=== PATIENT | male | born 1975 | race Caucasian/White ===

== ENCOUNTER 2020-10-19 17:28 | Emergency (ER) | payer OTHER, SELFPAY ==
--- NOTE | 2020-10-19 | ECG_ITS ---
Test Reason : CHEST PAIN Blood Pressure : / mmHG Vent. Rate : 072 BPM Atrial Rate : 072 BPM P-R Int : 136 ms QRS Dur : 090 ms QT Int : 420 ms P-R-T Axes : 061 039 046 degrees QTc Int : 459 ms Normal sinus rhythm Normal ECG No previous ECGs available Referred By: Generic ED Physician Electronically Signed By:DAVE LU
--- NOTE | ~2020-10-19 | CT_ITS ---
EXAMINATION: CT ABDOMEN AND PELVIS WITH CONTRAST CLINICAL INFORMATION: Pain. Assess for pancreatitis. COMPARISON: None TECHNIQUE: Multidetector volumetric images were obtained from the superior aspect of the liver through the pubic symphysis following administration 85 mL of Omnipaque 350 intravenous contrast. Sagittal and coronal reformatted images were obtained on the technologist's workstation. Oral contrast: No This CT examination was performed using dose optimization techniques as appropriate, variously including the following: *Automated exposure control *Adjustment of mA and/or kV according to patient size (this includes techniques or standardized protocols for targeted exams where dose is matched to indication/reason for exam; i.e. extremities or head) *Use of iterative reconstruction technique DLP: 986. mGy-cm FINDINGS: LUNG BASES: The visualized lung bases are unremarkable. LIVER, GALLBLADDER, AND BILIARY TREE: Liver attenuation is somewhat homogeneously hyperdense likely due to phase of enhancement and scanning. The liver is normal in size, shape, and attenuation. No focal hepatic lesion or biliary ductal dilatation is present. The gallbladder is unremarkable with no evidence of radiopaque gallstones, gallbladder wall thickening, or obvious pericholecystic inflammatory changes. PANCREAS: Unremarkable. SPLEEN: Unremarkable. ADRENAL GLANDS: Unremarkable. KIDNEYS AND URETERS: The kidneys are normal in size, shape, and attenuation. No hydronephrosis, hydroureter, or calculi seen. No perinephric stranding. BLADDER: Unremarkable. GASTROINTESTINAL TRACT: The small and large bowel are unremarkable. The appendix is unremarkable. ABDOMINAL WALL: There are prominent left greater than right fat-containing inguinal hernias. LYMPH NODES: Normal. VASCULAR: Unremarkable. PELVIC VISCERA: Unremarkable. OSSEOUS STRUCTURES: Hemangioma and degenerative disc disease changes noted within the lumbar spine. CT/CT abdomen pelvis w con IMPRESSION: No imaging findings of acute pancreatitis. Fat-containing prominent incarcerated appearing inguinal hernias.
[2020-10-19 17:33] VITALS: BP 161/99; PULSE 79; RESP 24; TEMP 36.2; O2SAT 100; BMI 30.7
[2020-10-19 18:00] VITALS: BP 147/98; PULSE 65; RESP 16; TEMP 36.7; O2SAT 100
--- NOTE | 2020-10-19 18:09 | ED.ABDPAIN ---
HPI - Abdominal Pain General Chief Complaint: Abdominal Pain Stated Complaint: abd pain Time Seen by Provider: 10/19/20 17:31 Source: patient Mode of arrival: ambulatory Limitations: no limitations History of Present Illness HPI narrative: Patient no significant abdominal complaints in the past had pizza around noon time within 2 hours of eating pizza noticed severe pain in epigastric area radiating to the back patient never had similar pain in the past no history of acid problems no history of gallstones patient did feel nauseated no vomiting or diarrhea no chest pain no shortness of breath no fever or chills Related Data Previous Rx's Medication Instructions Recorded methocarbamol 750 mg tablet 750 mg PO Q8H PRN 7 Days #21 tab 02/06/20 dicyclomine 20 mg tablet 20 mg PO TID #30 tab 10/19/20 pantoprazole 40 mg tablet,delayed 40 mg PO DAILY #30 tab 10/19/20 release (Protonix) sucralfate 1 gram tablet 1 g PO TID #90 tab 10/19/20 Allergies Allergy/AdvReac Type Severity Reaction Status Date / Time tetracycline Allergy Unknown Unverified 06/27/19 00:00 No Known Allergies Allergy Unverified 11/03/19 15:06 Review of Systems Review of Systems Yes all other systems are reviewed and are negative Physical Exam Vital Signs: Vital Signs: Last Vital Signs Temp 98.1 F 10/19/20 21:54 Pulse 67 10/19/20 21:54 Resp 16 10/19/20 21:54 BP 121/73 10/19/20 21:54 Pulse Ox 96 10/19/20 21:54 Body Mass Index 30.7 Appearance: Alert. Oriented X3. In Moderate distress Eyes: No pallor or icterus ENT: Pharynx normal. Oral Mucosa moist Neck: Normal inspection. Neck supple. CVS: Normal heart rate and rhythm. Pulses normal. Respiratory: No respiratory distress. Equal air entry bilateral, no wheezing/rales/rhonchi Abdomen: Soft , tender epigastric area and right upper quadrant no rebound tenderness or guarding Bowel sounds are present, no mass palpable, no CVA tenderness Skin: Skin warm and dry. Normal skin color. Normal skin turgor. Extremities: No lower extremity edema. No calf tenderness Neuro: Oriented X 3. MDM - Abdominal Pain MDM Narrative Medical decision making narrative: Patient with sudden onset epigastric pain etiology of that is not clear CT scan negative labs stable patient did have old surgery and inguinal hernia there is no tenderness and no vinyl hernia area. Will discharge patient home on Protonix and sucralfate advised to follow with underwriter solicitation director Lab Data Attestation: I reviewed the patient's lab results. Result diagrams: 10/19/20 18:17 10/19/20 18:17 Labs: Lab Results 10/19/20 10/19/20 10/19/20 Range/Units 18:17 18:17 18:18 WBC 6.0 (4.8-10.8) X10*3/uL RBC 4.43 L (4.60-5.80) X10*6/uL Hgb 13.4 L (14.0-18.0) g/dl Hct 39.4 L (42-52) % MCV 88.9 (80-98) fL MCH 30.2 (27.0-33.0) pg MCHC 34.0 (31.0-36.0) g/dl RDW 13.3 (11.0-16.0) % Plt Count 104 L (160-400) X10*3/uL MPV 12.5 H (9.4-12.4) fL Immature Gran % (Auto) 0.2 (0.0-0.4) % Neut % (Auto) 53.8 (45-73) % Lymph % (Auto) 38.5 (20-40) % [place] % (Auto) 6.0 (2-11) % Eos % (Auto) 1.3 (0-4) % Baso % (Auto) 0.2 (0-2) % Lymph # (Auto) 2.3 (1.2-4.9) X10*3/uL [place] # (Auto) 0.4 (0.1-1.2) X10*3/uL Eos # (Auto) 0.1 (0.0-0.4) X10*3/uL Baso # (Auto) 0.0 (0.0-0.2) X10*3/uL Abs Immat Gran (auto) 0.01 (0.00-0.03) X10*3/uL Absolute Neuts (auto) 3.2 (2.0-8.3) X10*3/uL Absolute Nucleated RBC 0.000 (0.0-0.012) X10*3/uL Nucleated RBC % (auto) 0.0 (0.0-0.2) /100WBC Sodium 138 (135-145) mmol/L Potassium 3.6 (3.3-5.1) mmol/L Chloride 105 (96-108) mmol/L Carbon Dioxide 25 (22-29) mmol/L Anion Gap 12 (12-20) BUN 14 (9-16) mg/dL Creatinine 0.80 (0.5-1.4) mg/dL Estim Creat Clear Calc 178.7 Estimated GFR > 60 Random Glucose 112 (60-115) mg/dL Lactic Acid 1.5 (0.5-2.0) mmol/L Calcium 9.4 (8.4-10.2) mg/dL Total Bilirubin 1.4 H (0.0-1.0) mg/dL Direct Bilirubin 0.4 (0.0-0.5) mg/dL AST 26 (5-37) U/L ALT 21 (0-40) U/L Alkaline Phosphatase 74 (39-117) U/L Total Protein 7.0 (6.5-8.0) g/dL Albumin 4.4 (3.5-5.0) g/dL Lipase 28 (8-78) U/L Discharge Plan Discharge Clinical Impression: Acute gastritis Patient Disposition: Home, Self-Care Instructions: Gastritis (ED) Additional Instructions: Drink plenty of fluids avoid spicy and fried food Medicine For gastritis follow with PCP/underwriter solicitation director if not better Prescriptions: New pantoprazole [Protonix] 40 mg tablet,delayed release (DR/EC) 40 mg PO DAILY Qty: 30 RF: 0 sucralfate 1 gram tablet 1 g PO TID Qty: 90 RF: 0 dicyclomine 20 mg tablet 20 mg PO TID Qty: 30 RF: 0 No Action methocarbamol 750 mg tablet 750 mg PO Q8H PRN (Reason: spasms) 7 Days Qty: 21 RF: 0 Referrals: Divya Jones MD [Physician] - 1 week Interventions: ED Discharge Assessment Last Done: 10/19/20 22:20 Discharge Date/Time: 10/19/20 22:21 [facility] Past Medical History Medical History Arthritis Social History Social History Advance Directives: No Advance Directives Information Provided: Yes
[2020-10-19 18:25] LABS: MANUAL DIFF FLAG NO
[2020-10-19] MEDS: Morphine Sulfate 4 MG/ML CARTRIDGE IVPUSH ×2 (18:25→18:46)
[2020-10-19] MEDS: ondansetron HCL 4 MG/2 ML VIAL IVPUSH (18:25)
[2020-10-19] MEDS: 0.9 % Sodium Chloride 1,000 ML 999 ML IVCONT (18:26)
--- NOTE | 2020-10-19 18:33 | PC.NURSE ---
Pt states he began having epigastric pain which started this morning while at work, when he got home this afternoon he was on the floor in pain. He denies any other symptoms. No c/o sob/headache/dizziness/nausea. Iv line established, labs drawn, fluids hung, meds given as documented, vss. Pt resting quietly, no apparent distress.
[2020-10-19 18:39] LABS: Basophils Percent Auto 0.2 % (0-2); Eosinophils Absolute Auto 0.1 X10*3/uL (0.0-0.4); Eosinophils Percent Auto 1.3 % (0-4); Hematocrit 39.4 % (42-52); Hemoglobin 13.4 g/dl (14.0-18.0); Imm Gran Abs Auto 0.01 X10*3/uL (0.00-0.03); Imm Gran Pct Auto 0.2 % (0.0-0.4); Lymphocytes Absolute Auto 2.3 X10*3/uL (1.2-4.9); Lymphocytes Percent Auto 38.5 % (20-40); Mean Corpuscular Hemoglobin 30.2 pg (27.0-33.0); Mean Corpuscular Volume 88.9 fL (80-98); Mean Platelet Volume 12.5 fL (9.4-12.4); Monocytes Absolute Auto 0.4 X10*3/uL (0.1-1.2); Neutrophils Absolute Auto 3.2 X10*3/uL (2.0-8.3); Neutrophils Percent Auto 53.8 % (45-73); Platelet Count 104 X10*3/uL (160-400); Red Blood Count 4.43 X10*6/uL (4.60-5.80); Red Cell Distribution Width 13.3 % (11.0-16.0)
[2020-10-19 18:47] LABS: Lactic Acid 1.5 mmol/L (0.5-2.0)
[2020-10-19 18:55] LABS: Alanine Aminotransferase 21 U/L (0-40); Albumin Level 4.4 g/dL (3.5-5.0); Alkaline Phosphatase 74 U/L (39-117); Anion Gap 12 (12-20); Aspartate Amino Transferase 26 U/L (5-37); Bilirubin Direct 0.4 mg/dL (0.0-0.5); Bilirubin Total 1.4 mg/dL (0.0-1.0); Blood Urea Nitrogen 14 mg/dL (9-16); Calcium 9.4 mg/dL (8.4-10.2); Carbon Dioxide 25 mmol/L (22-29); Chloride 105 mmol/L (96-108); Creatinine Clr Calc Pharmacy 178.7; Estimated Glomerular Filt Rate > 60; Glucose Random 112 mg/dL (60-115); Lipase 28 U/L (8-78); Potassium 3.6 mmol/L (3.3-5.1); Sodium 138 mmol/L (135-145)
[2020-10-19] MEDS: iohexoL 350 MG/ML 100 ML INFUS..BTL IV (19:30)
[2020-10-19 19:59] VITALS: BP 118/78; PULSE 53; RESP 16; TEMP 36.7; O2SAT 98
[2020-10-19] MEDS: Magnesium Hydrox/Alum Hydrox 30 ML ORAL.SUSP PO (20:05)
[2020-10-19] MEDS: Famotidine/PF 20 MG/2 ML VIAL IVPUSH (20:05)
[2020-10-19] MEDS: Lidocaine HCl Viscous 2 % 15 ML SOLUTION MUCOUS MEM (21:19)
[2020-10-19 21:54] VITALS: BP 121/73; PULSE 67; RESP 16; TEMP 36.7; O2SAT 96
== END 2020-10-19 22:21 | disposition home or self-care (01) ==
PROVIDERS: Emergency Provider Internal Medicine; PCP Physician Assistant
DX: K29.00 Acute gastritis without bleeding (principal)
CPT/HCPCS: 36415; 74177; 80048; 80076; 83605; 83690; 85025; 93005; 96361; 96374; 96375; 96376; 99284; J2270; J2405; Q9967

== ENCOUNTER 2023-01-02 08:58 | Outpatient (AMB) | payer BC, SELFPAY ==
--- NOTE | 2023-01-02 09:02 | A.OFFPC_ITS ---
Vital Signs 01/02/23 09:05 Height 6 ft 8 in Weight 284 lb 4 oz BMI 31.2 BP 90/66 Blood Pressure Location Lt brachial Position Sitting Pulse 83 Pulse Source Pulse Oximeter Pulse Oximetry (%) 96 Oxygen Delivery Method Room Air Intake Visit Reasons: Discuss MRI request Intake Note: Patient is here to follow up on MRI results. 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 Accountant Required: No Transmission Specialist: Not Required per policy Accompanied by: Self / Same As Patient Allergies tetracycline Allergy (Unknown, Verified 01/02/23 09:03) Unknown Tobacco use date assessed: 01/02/23 Dental Screening Dental Screen Date: 01/02/23 Did you have a dental visit in the last 12 months?: No Did you have a dental problem in the last 6 months where you did not have access to dental care?: No Was dental information given to patient?: No HPI HPI Comments History of Present Illness Details 47-year-old male past medical history si gnificant for chronic knee instability and arthritis. Patient of Brendan Villarreal PA-C last seen in October 2021. Patient was seen in the walk-in clinic for scrotal fullness, referral was placed to urology at that time and patient has an upcoming appointment for this in March. Patient presents today for chronic bilateral knee pain. Patient reports chronic bilateral knee pain x 10 years, hx left knee arthoscopy, states has bone on bone and bone spurs in 2013 at [facility]. Patient states during COVID slipped on children's book. Patient states takes ibuprofen with partial improvement pain. Patient reports difficulty going up and down stairs. Patient reports bilateral pain with extension over kneecap. Bilateral knee crepitus noted on exam. 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 1. Little interest or pleasure in doing things: not at all 2. Feeling down, depressed, or hopeless: not at all 3. Trouble falling or staying asleep, or sleeping too much: not at all 4. Feeling tired or having little energy: not at all 5. Poor appetite or overeating: not at all 6. Feeling bad about yourself - or that you are a failure or have let yourself or your family down: not at all 7. Trouble concentrating on things, such as reading the newspaper or watching television: not at all 8. Moving or speaking so slowly that other people could have noticed. Or the opposite - being so fidgety or restless that you have been moving around a lot more than usual: not at all 9. Thoughts that you would be better off or of hurting yourself in some way: not at all Total score: 0 Depression Screening Interpretation: Negative Depression Screening Done: Yes Source: Developed by Drs. Savage Ramsey, Salma Morin, Justin Torres and colleagues, with an educational mariano from [employer]. Thrive Questionnaire Date Thrive assessed: 01/02/23 I am a: Patient What is your living situation today?: I have a steady place to live Within the past 12 months, did the food you bought not last and you didn't have the money to get more?: Never true Within the past 12 months, did you worry whether your food would run out before you got money to buy more?: Never true Do you have trouble paying for medicines?: No Do you have trouble getting transportation to medical appointments?: No Do you have trouble paying your heating and electricity bill?: No Do you have trouble taking care of your child, family member or friend?: No Do you have trouble with day-to-day activities such as bathing, preparing meals, shopping, managing finances, etc.?: No Are you currently unemployed and looking for a job?: No Are you interested in more education?: No Currently or been in a relationship where the following occur: no concerns reported AUDIT C Alcohol Use Questionnaire (AUDIT-C) 1. How often do you have a drink containing alcohol?: Never Total Score: 0 JOAQUIN-7 AMB Questionnaire JOAQUIN-7 Date JOAQUIN - 7 assessed: 01/02/23 Feeling nervous, anxious, or on edge: 0 = Not at all Not being able to stop or control worryin = Not at all Worrying too much about different things: 0 = Not at all Trouble relaxin = Not at all Being so restless that it is hard to sit still: 0 = Not at all Becoming easily annoyed or irritable: 0 = Not at all Feeling afraid as if something awful might happen: 0 = Not at all Total JOAQUIN-7 score (0-4 normal; 5-9 mild; 10-14 moderate; 15-21 severe): 0 Source: Developed by Drs. Savage Ramsey, Salma Morin, Justin Torres and colleagues, with an educational mariano from [employer]. Review of Systems Const Denies chills, Denies fatigue, Denies fever(s) and Denies poor appetite Eyes Denies no additional complaints ENT Reports Normal hearing present Card Denies chest pain, Denies syncope, Denies rapid heart rate and Denies dyspnea Resp Denies cough and Denies dyspnea GI Denies change in stool character, Denies constipation, Denies diarrhea, Denies nausea and Denies vomiting Denies dysuria, Denies urinary frequency and Denies urinary urgency Musc Reports arthralgias (bilateral knee pain ) Neuro Reports Normal hearing present, Denies confusion and Denies syncope Psych Denies confusion Endo Denies fatigue Physical exam (Primary Care) Vital Signs: Last Vital Signs Pulse 83 01/02/23 09:05 BP 90/66 01/02/23 09:05 Pulse Ox 96 01/02/23 09:05 Oxygen Delivery Method Room Air 01/02/23 09:05 BMI result Body Mass Index 31.2 Tobacco/Smoking Status: Tobacco use Status Tobacco use date assessed 01/02/23 01/02/23 09:05 Patient Tobacco Use Status Never used Tobacco 01/02/23 09:11 e-Cigarette/Vaping Use Never Used 01/02/23 09:11 PHQ-9: PHQ-9 Score PHQ-9: Total score 0 01/02/23 09:20 Depression Screening Interpretation: Negative Thrive Assessment: Date of Thrive Assessment Date Thrive assessed 01/02/23 01/02/23 09:05 Currently or been in a relationship where the following occur: no concerns reported Const General: No confusion Orientation/consciousness: No confusion HENMT Head: Yes normocephalic and Yes atraumatic Eyes Conjunctivae: conjunctivae normal Chest Chest palpation & inspection: normal inspection of the chest Resp Effort & Inspection: normal respiratory effort Auscultation: clear to auscultation bilaterally, no crackles, no rhonchi and no wheezes Cardio Rate: regular rate Rhythm: regular rhythm Heart sounds: S1 normal heart sound present and S2 normal heart sound present GI Inspection: Yes normal to inspection Neuro General: No confusion Cranial nerves: Yes Normal hearing present Extrem General: No edema Right lower extremity: normal to inspection, normal capillary refill and knee Details: tenderness Location: of the patella and crepitus Location: at the kneww and at the patella; no swelling Left lower extremity: normal to inspection, normal capillary refill and knee Details: tenderness Location: of the patella and crepitus Location: at the knee; no swelling Assessment and Plan Assessment & Plan (1) Chronic knee instability: Code(s): M23.50 - Chronic instability of knee, unspecified knee Plan: Bilateral knee x-rays recommended however patient declines at this time states he had knee x-rays completed in the past, would like MRI of knees. Patient states has not completed physical therapy for bilateral knee pain. Would like to speak to orthopedic surgeon for Referral entered to orthopedic surgery for further evaluation of bilateral chronic knee pain and ordering of necessary imaging. Can continue to take [id number] ibuprofen as needed for pain. Offered prescription for this however patient declines. Please take medication food to prevent GI upset. (2) Bilateral knee pain: Code(s): M25.561 - Pain in right knee; M25.562 - Pain in left knee Plan Follow-up in 3 months for complete physical exam. Orders: Orders Complete Blood Count Auto Diff Today Z13.0 - Encounter for screening for diseases of the blood and blood-forming organs and certain disorders involving the immune mechanism TSH reflex Free T4 Today Z13.29 - Encounter for screening for other suspected endocrine disorder Comprehensive [place]. Panel Fast Today Z13.1 - Encounter for screening for diabetes mellitus Lipid Panel Today Z13.220 - Encounter for screening for lipoid disorders Referrals Orthopedics Referral M23.50 - Chronic instability of knee, unspecified knee, M25.561 - Pain in right knee, M25.562 - Pain in left knee Coding Level of Care Code Est Pt Level 3 (85482) Diagnoses Chronic knee instability M23.50 Bilateral knee pain M25.561; M25.562
[2023-01-02 09:05] VITALS: BP 90/66; PULSE 83; O2SAT 96; BMI 31.2
== END 2023-01-02 09:29 | disposition home or self-care (01) ==
PROVIDERS: PCP Physician Assistant; Visit Provider Nurse Practitioner Family
DX: M23.50 Chronic instability of knee, unspecified knee (principal); M25.561 Pain in right knee; M25.562 Pain in left knee
CPT/HCPCS: 99213

== ENCOUNTER 2023-01-21 12:33 | Outpatient (REF) | payer BC, SELFPAY | END 2023-01-21 12:34 | disposition home or self-care (01) | LOC: HO.HOSX 12:33 | PROVIDERS: Visit Provider Orthopaedic Surgery | DX: Z13.89 Encounter for screening for other disorder (principal) ==

== ENCOUNTER 2023-01-29 14:06 | Outpatient (REF) | payer BC, SELFPAY ==
--- NOTE | ~2023-01-29 | XR_ITS ---
EXAMINATION: XR KNEE, BILATERAL CLINICAL INFORMATION: Bilateral knee pain COMPARISON: None. TECHNIQUE: 3 views of each knee FINDINGS: Marked medial compartment narrowing of both knees with lateral subluxation of the tibia. Marginal osteophytes of all 3 compartments. Degenerative cyst/intraosseous ganglion deep to the tibial spines bilaterally. There is a moderately sized right knee joint effusion. No fracture. XR/XR knee LT 3V IMPRESSION: Tricompartmental osteoarthritis, severe in the medial compartment, of both knees with lateral subluxation of the tibia. Moderate right knee joint effusion.
--- NOTE | ~2023-01-29 | XR_ITS ---
EXAMINATION: XR KNEE, BILATERAL CLINICAL INFORMATION: Bilateral knee pain COMPARISON: None. TECHNIQUE: 3 views of each knee FINDINGS: Marked medial compartment narrowing of both knees with lateral subluxation of the tibia. Marginal osteophytes of all 3 compartments. Degenerative cyst/intraosseous ganglion deep to the tibial spines bilaterally. There is a moderately sized right knee joint effusion. No fracture. XR/XR knee RT 3V IMPRESSION: Tricompartmental osteoarthritis, severe in the medial compartment, of both knees with lateral subluxation of the tibia. Moderate right knee joint effusion.
== END 2023-01-29 14:07 | disposition home or self-care (01) ==
LOC: HO.HOSX 14:06
PROVIDERS: PCP Physician Assistant; Visit Provider Orthopaedic Surgery
DX: M17.0 Bilateral primary osteoarthritis of knee (principal)
CPT/HCPCS: 73562

== ENCOUNTER 2023-01-29 14:06 | Outpatient (AMB) | payer BC, SELFPAY ==
--- NOTE | 2023-01-29 14:12 | MHC.OFFVIS ---
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 He would like to discuss TKA. History of cortisone done at [facility] with the most recent ebing about 6-7 years ago, as well as Arthroscopy done aboout 13 years ago. He describes his knee pains as sharp and severe in nature, /. At this point his right knee pain is more bothersome than his his left. He has done physical therapy exercises which aggravated his pain. He has had both cortisone and viscosupplementation injections. The most recent set of injections gave him no relief. He has tried Tylenol and ibuprofen which gave him only mild relief. The patient has difficulty walking even short distances because of his knee pains. At this point is right knee pain is interfering with his activities of daily living and his ability to sleep well through the night. Allergies No Known Allergies Allergy (Verified 01/29/23 14:22) Medication List - Last Reconciled 01/30/23 by Alex Jiménez MD ibuprofen 800 mg PO Q8H [facility] Medical History (Updated 01/30/23 @ 07:34 by Alex Jiménez MD) Arthritis Surgical History (Updated 01/29/23 @ 14:23 by Estefanía Cano CMA) S/P left knee arthroscopy History of exploratory laparotomy Social History (Updated 01/02/23 @ 09:11 by Neha Hampton Emiliano) Housing: House Alcohol intake: current Alcohol intake frequency: a few times a week Patient Tobacco Use Status: Never used Tobacco e-Cigarette/Vaping Use: Never Used Second Hand Smoke Exposure: No service: No Current occupational status: employed 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 Cognitive needs: No Hearing needs: No Vision needs: Yes (glasses) Physical Exam Vital Signs: BMI result Body Mass Index 27.2 Const Other: Well-nourished well-developed very friendly male awake alert and oriented x3 in no acute distress Extrem Other: Bilateral lower extremity examination shows good capillary refill, no skin lesions noted, normal sensation light touch Bilateral knee examination shows minimal effusions, palpable crepitus with range of motion, pain with range of motion, range of motion from -3 degrees to 115 degrees, no instability Results Reviewed Results Reviewed: X-rays of the patient's bilateral knee show end-stage grade 4 degenerative joint disease with [id number] arthritis, subchondral sclerosis, osteophyte formation Assessment & Plan Assessment & Plan (1) Arthritis of left knee: Code(s): M17.12 - Unilateral primary osteoarthritis, left knee (2) Arthritis of right knee: Code(s): M17.11 - Unilateral primary osteoarthritis, right knee Plan Mr. Garrett presents with progressively worsening bilateral knee pains, right greater than left, due to end-stage degenerative joint disease. I had a lengthy discussion with the patient regarding the treatment options. At this point he has failed continued non operative treatments. The risks and benefits of right total knee replacement surgery were discussed at length with the patient. The patient wishes to proceed with surgery. He will be scheduled for our next available date. I will see him back 1 week prior to his surgery to answer any final questions that might have. Feel free to call me at any time should questions regarding his orthopedic management arise. Thank you very much for asking me to see this very friendly gentleman. I spent 22 minutes in reviewing the patient's records and imaging studies, seeing the patient and documenting in the medical record. Orders: Orders XR knee LT 3V 01/29/23 M25.562 - Pain in left knee XR knee RT 3V 01/29/23 M25.561 - Pain in right knee Coding Level of Care Code New Pt Level 2 (10419) Diagnoses Arthritis of left knee M17.12 Arthritis of right knee M17.11
[2023-01-29 14:20] VITALS: BMI 27.2
== END 2023-01-29 14:42 | disposition home or self-care (01) ==
PROVIDERS: PCP Physician Assistant; Visit Provider Orthopaedic Surgery
DX: M17.0 Bilateral primary osteoarthritis of knee (principal)
CPT/HCPCS: 99202

== ENCOUNTER 2023-04-06 09:25 | Outpatient (AMB) | payer BC, SELFPAY ==
[2023-04-06 09:46] VITALS: BP 108/82; PULSE 76; O2SAT 98; BMI 31.4
--- NOTE | 2023-04-06 09:46 | A.OFFPC_ITS ---
Vital Signs 3 04/06/23 09:46 Height 6 ft 8 in Weight 286 lb 2.56 oz BMI 31.4 BP 108/82 Blood Pressure Location Lt brachial Position Sitting Pulse 76 Pulse Source Pulse Oximeter Pulse Oximetry (%) 98 Oxygen Delivery Method Room Air Intake Visit Reasons: Annual Exam- SEE BULLETIN BOARD Intake Note: Patient is here today for a physical and overdue for Colorectal Cancer Screening per [employer]. Cosmetic Manager Required: No Accompanied by: Self / Same As Patient Allergies No Known Allergies Allergy (Verified 04/06/23 10:03) Medication List - Last Reconciled 04/06/23 by Javi Villarreal PA-C No Known Home Meds Tobacco use date assessed: 04/06/23 Dental Screening Dental Screen Date: 04/06/23 Did you have a dental visit in the last 12 months?: No Did you have a dental problem in the last 6 months where you did not have access to dental care?: No Was dental information given to patient?: No HPI Annual Exam- SEE BULLETIN BOARD 2 HPI0 Details Patient is a 48 year here today for routine annual physical. Has not been seen in quite some years. Has a past medical history significant bilateral knee pain and instability. Has upcoming knee replacements [facility] at [facility] .. Concern--> has noted left-sided scrotal swelling over the last year which has progressively gotten much larger. He denies any issues with urinating or ejaculating. Reviewed CT abdomen and pelvis in 2021 which did show an fat containing inguinal hernia. He is interested in having workup and per has a surgical repair of either hydrocele or inguinal hernia. Vaccines: Up-to-date with COVID vaccine, tetanus vaccine, declines flu vaccine Colon cancer screening: Considering colonoscopy. 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 1. Little interest or pleasure in doing things: not at all 2. Feeling down, depressed, or hopeless: not at all 3. Trouble falling or staying asleep, or sleeping too much: not at all 4. Feeling tired or having little energy: not at all 5. Poor appetite or overeating: not at all 6. Feeling bad about yourself - or that you are a failure or have let yourself or your family down: not at all 7. Trouble concentrating on things, such as reading the newspaper or watching television: not at all 8. Moving or speaking so slowly that other people could have noticed. Or the opposite - being so fidgety or restless that you have been moving around a lot more than usual: not at all 9. Thoughts that you would be better off or of hurting yourself in some way: not at all Total score: 0 Depression Screening Interpretation: Negative Depression Screening Done: Yes 58026 - PHQ-9 Billing: Yes Source: Developed by Drs. Savage Ramsey, Salma Morin, Justin Torres and colleagues, with an educational mariano from [employer]. Thrive Questionnaire Date Thrive assessed: 04/06/23 I am a: Patient What is your living situation today?: I have a steady place to live Within the past 12 months, did the food you bought not last and you didn't have the money to get more?: Never true Within the past 12 months, did you worry whether your food would run out before you got money to buy more?: Never true Do you have trouble paying for medicines?: No Do you have trouble getting transportation to medical appointments?: No Do you have trouble paying your heating and electricity bill?: No Do you have trouble taking care of your child, family member or friend?: No Do you have trouble with day-to-day activities such as bathing, preparing meals, shopping, managing finances, etc.?: No Are you currently unemployed and looking for a job?: No Are you interested in more education?: No Please select the resources that you would like help with: None Currently or been in a relationship where the following occur: no concerns reported THRIVE Score: 0 AUDIT C Alcohol Use Questionnaire (AUDIT-C) 1. How often do you have a drink containing alcohol?: 2-3 times a week 2. How many drinks containing alcohol do you have on a typical day when you are drinking?: 5 or 6 3. How often do you have six or more drinks on one occasion?: Never Total Score: 5 JOAQUIN-7 AMB Questionnaire JOAQUIN-7 Date JOAQUIN - 7 assessed: 04/06/23 Feeling nervous, anxious, or on edge: 0 = Not at all Not being able to stop or control worryin = Not at all Worrying too much about different things: 0 = Not at all Trouble relaxin = Not at all Being so restless that it is hard to sit still: 0 = Not at all Becoming easily annoyed or irritable: 0 = Not at all Feeling afraid as if something awful might happen: 0 = Not at all Total JOAQUIN-7 score (0-4 normal; 5-9 mild; 10-14 moderate; 15-21 severe): 0 Source: Developed by Drs. Savage Ramsey, Salma Morin, Justin Torres and colleagues, with an educational mariano from [employer]. JOAQUIN-7 Assessment Billing JOAQUIN-7 Assessment Tool: JOAQUIN-7 Assessment 03954 Review of Systems Const Denies body aches, Denies chills, Denies excessive sweating, Denies fatigue, Denies fever(s) and Denies headache(s) Eyes Denies blurry vision ENT Denies dysphagia, Denies vertigo, Denies dizziness, Denies headache(s), Denies hearing loss and Denies tinnitus Card Denies chest pain, Denies chest pain with activity, Denies syncope, Denies irregular heart rhythm and Denies dyspnea Resp Denies chest congestion, Denies cough, Denies hemoptysis, Denies dyspnea and Denies wheezing GI Denies abdominal pain, Denies melena, Denies hematochezia, Denies coffee ground emesis, Denies dysphagia, Denies diarrhea, Denies nausea and Denies vomiting Denies difficulty urinating, Denies dysuria, Denies urinary frequency, Denies urinary hesitancy and Denies urinary urgency Musc Denies arthralgias, Denies limited range of motion, Denies muscle cramps and Denies muscle weakness Skin/Breast Denies rash and Denies skin ulcer Neuro Denies Abnormal speech present, Denies confusion, Denies vertigo, Denies dizziness, Denies syncope, Denies headache(s), Denies memory loss and Denies seizure-like activity Psych Denies anxiety, Denies confusion, Denies depression, Denies memory loss, Denies panic attacks and Denies paranoia Endo Denies excessive sweating, Denies fatigue, Denies flushing, Denies polydipsia and Denies polyuria Aller/Immun Denies wheezing Physical exam (Primary Care) Vital Signs: Last Vital Signs Pulse 76 04/06/23 09:46 BP 108/82 04/06/23 09:46 Pulse Ox 98 04/06/23 09:46 Oxygen Delivery Method Room Air 04/06/23 09:46 BMI result Body Mass Index 31.4 Tobacco/Smoking Status: Tobacco use Status Tobacco use date assessed 04/06/23 04/06/23 09:59 Patient Tobacco Use Status Never used Tobacco 04/06/23 10:09 e-Cigarette/Vaping Use Never Used 04/06/23 10:09 PHQ-9: PHQ-9 Score PHQ-9: Total score 0 04/06/23 10:05 Depression Screening Interpretation: Negative Thrive Assessment: Date of Thrive Assessment Date Thrive assessed 04/06/23 04/06/23 10:01 Currently or been in a relationship where the following occur: no concerns reported Const General: cooperative, comfortable, no acute distress, alert and awake; No confusion Orientation/consciousness: oriented to person, oriented to place, patient oriented x3 and No confusion HENMT Head: Yes normocephalic Ears: external ears normal and TM's normal bilaterally Face and sinus: No sinus tenderness Mouth: Normal oral and palatal mucosa present and tongue normal Teeth and gingiva: dentition normal and gingiva normal Throat: Yes posterior oropharynx normal, Yes tonsils normal and Yes uvula midline Eyes Conjunctivae: conjunctivae normal Sclerae: sclerae normal Pupils: Equal, round and reactive pupils present EOM: EOMs intact bilaterally Direct Ophthalmoscopy: No no photophobia Neck Neck: Yes no lymphadenopathy, No tender and Yes no JVD Thyroid: Thyroid normal Carotids: no bruits Chest Chest palpation & inspection: no tenderness Resp Effort & Inspection: normal respiratory effort, no audible wheezes, not labored and no stridor Auscultation: no crackles, no rales, no rhonchi and no wheezes Cardio Jugular venous distension: no JVD Rate: regular rate, not bradycardic and not tachycardic Rhythm: regular rhythm Bruits: no carotid bruits Peripheral pulses: Peripheral pulses 2+ throughout GI Inspection: Yes normal to inspection, No abdominal wall ecchymosis and No visible herniation Palpation (GI): Soft to palpation, nontender, no guarding, not rigid and No hepatosplenomegaly present Auscultation: normoactive bowel sounds General: Yes no CVA tenderness Male genitals images: 2 1. LARGE FULLNESS OVER LEFT SCROTUM AND INGUINAL REGION. NO ERYTHEMA Back/Spine/Pelvis Back: no CVA tenderness and No back tenderness Cervical Spine: cervical ROM normal Thoracic/Lumbar Spine: thoracic and lumbar spine normal to inspection, straight leg raise negative bilaterally, No thoraco-lumbar ROM limited and No lumbar spinal tenderness Skin Lesions: no lesions Rashes: no rashes Wounds: no wounds Neuro General: oriented to person, oriented to place, patient oriented x3, CN's II-XI intact bilaterally and No confusion Cranial nerves: Yes Equal, round and reactive pupils present and Yes Normal accommodation reflex present Cognition (Neuro): normal cognition Speech: No Abnormal speech present Gait exam (Neuro): Normal gait present Motor exam (neuro): 5/5 motor strength present throughout Extrem Right upper extremity: full ROM; no cyanosis Left upper extremity: full ROM; no cyanosis Right lower extremity: no edema Left lower extremity: no edema Psych Appearance: grossly normal Mental Status: mental status grossly normal Affect: normal affect Attitude: cooperative Thought process: Normal thought process present Assessment and Plan Assessment & Plan (1) Annual physical exam: Code(s): Z00.00 - Encounter for general adult medical examination without abnormal findings (2) Scrotal fullness: Code(s): N50.89 - Other specified disorders of the male genital organs Plan: Has been having worsening left inguinal and scrotal swelling that has been concerning to him. He would like evaluation treatment. Physical exam appears to have an inguinal hernia verses large hydrocele. Will send him for scrotal ultrasound. Will refer to general surgeon for possible surgical fix of his presumed inguinal hernia. Otherwise urinating, defecating and ejaculating normally. (3) Colon cancer screening: Code(s): Z12.11 - Encounter for screening for malignant neoplasm of colon (4) Screening for diabetes mellitus (DM): Code(s): Z13.1 - Encounter for screening for diabetes mellitus (5) Left inguinal hernia: Code(s): K40.90 - Unilateral inguinal hernia, without obstruction or gangrene, not specified as recurrent Plan: Has fullness over left groin also left aspect of scrotum. (6) Arthritis of right knee: Code(s): M17.11 - Unilateral primary osteoarthritis, right knee Plan: He is due for bilateral knee replacements with [facility] to see her. Orders: Orders 2 US scrotum 04/06/23 N50.89 - Other specified disorders of the male genital organs Comprehensive [place]. Panel Fast 04/06/23 Z13.1 - Encounter for screening for diabetes mellitus Referrals 2 General Surgery Referral K40.90 - Unilateral inguinal hernia, without obstruction or gangrene, not specified as recurrent Gastroenterology Referral Z12.11 - Encounter for screening for malignant neoplasm of colon Coding Level of Care Code Est Pt Prev Care 40-64y(83758) Diagnoses Annual physical exam Z00.00 Scrotal fullness N50.89 Colon cancer screening Z12.11 Screening for diabetes mellitus (DM) Z13.1 Left inguinal hernia K40.90 Arthritis of right knee M17.11 Additional Codes JOAQUIN-7 Assessment Billing - JOAQUIN-7 Assessment Tool: JOAQUIN-7 Assessment 51508 ([id number])
== END 2023-04-06 10:25 | disposition home or self-care (01) ==
PROVIDERS: PCP Physician Assistant; Visit Provider Physician Assistant
DX: Z00.00 Encounter for general adult medical examination without abnormal findings (principal); N50.89 Other specified disorders of the male genital organs; Z12.11 Encounter for screening for malignant neoplasm of colon; Z13.1 Encounter for screening for diabetes mellitus; K40.90 Unilateral inguinal hernia, without obstruction or gangrene, not specified as recurrent; M17.11 Unilateral primary osteoarthritis, right knee
CPT/HCPCS: 99396

== ENCOUNTER 2023-04-06 10:31 | Outpatient (REF) | payer BC, SELFPAY ==
[2023-04-06 10:41] LABS: MANUAL DIFF FLAG NO
[2023-04-06 11:11] LABS: Basophils Percent Auto 0.5 % (0-2); Eosinophils Absolute Auto 0.2 X10*3/uL (0.0-0.4); Eosinophils Percent Auto 3.1 % (0-4); Hematocrit 43.3 % (42.0-52.0); Hemoglobin 14.4 g/dl (14.0-18.0); Imm Gran Abs Auto 0.02 X10*3/uL (0.00-0.03); Imm Gran Pct Auto 0.3 % (0.0-0.4); Lymphocytes Absolute Auto 1.9 X10*3/uL (1.2-4.9); Lymphocytes Percent Auto 32.9 % (20-40); Mean Corpuscular HGB Conc 33.3 g/dl (31.0-36.0); Mean Corpuscular Hemoglobin 30.1 pg (27.0-33.0); Mean Corpuscular Volume 90.4 fL (80.0-98.0); Mean Platelet Volume 13.6 fL (9.4-12.4); Monocytes Absolute Auto 0.5 X10*3/uL (0.1-1.2); Monocytes Percent Auto 7.9 % (2-11); Neutrophils Absolute Auto 3.2 x10*3/uL (2.0-8.3); Neutrophils Percent Auto 55.3 % (45-73); Platelet Count 109 X10*3/uL (160-400); Red Blood Count 4.79 X10*6/uL (4.60-5.80); Red Cell Distribution Width 13.3 % (11.0-16.0); White Blood Count 5.7 X10*3/uL (4.8-10.8)
[2023-04-06 11:46] LABS: Alanine Aminotransferase 25 U/L (0-40); Albumin Level 4.4 g/dL (3.5-5.0); Alkaline Phosphatase 70 U/L (39-117); Anion Gap 10 (12-20); Aspartate Amino Transferase 28 U/L (5-37); Bilirubin Total 1.4 mg/dL (0.0-1.0); Blood Urea Nitrogen 10 mg/dL (9-16); Calcium 9.2 mg/dL (8.4-10.2); Carbon Dioxide 27 mmol/L (22-29); Chloride 106 mmol/L (96-108); Cholesterol 199 mg/dL (<200); Estimated Glomerular Filt Rate > 60; Glucose Fasting 96 mg/dL (60-99); HDL Cholesterol 38 mg/dL (>40); LDL Cholesterol Calculated 126 mg/dL (<100); Sodium 139 mmol/L (135-145); Total Protein 7.5 g/dL (6.5-8.0); Triglycerides 175 mg/dL (<150)
[2023-04-06 12:11] LABS: TSH reflex Free T4 1.26 uIU/mL (0.32-4.0)
== END 2023-04-06 10:32 | disposition home or self-care (01) ==
LOC: HO.LAB 10:31
PROVIDERS: Nurse Practitioner Family; PCP Physician Assistant; Visit Provider Physician Assistant
DX: Z13.29 Encounter for screening for other suspected endocrine disorder (principal); Z13.220 Encounter for screening for lipoid disorders; Z13.0 Encounter for screening for diseases of the blood and blood-forming organs and certain disorders involving the immune mechanism
CPT/HCPCS: 36415; 80053; 80061; 84443; 85025

== ENCOUNTER 2023-04-10 14:32 | Outpatient (REF) | payer BC, SELFPAY ==
--- NOTE | ~2023-04-10 | US_ITS ---
EXAMINATION: US SCROTUM CLINICAL INFORMATION: Enlarged testicles. COMPARISON: None available. TECHNIQUE: A sonogram of the scrotum was performed assessing bates-scale appearance and color Doppler flow. Spectral Doppler analysis of the arterial and venous flow were performed in the testes bilaterally. FINDINGS: RIGHT: Right testicle measures 4.5 x 2.2 x 3.3 cm, volume 16.9 mL. No focal testicular parenchymal lesions are visualized. Spectral Doppler analysis of the arterial and venous flow is normal in the right testis. Right epididymal head cyst measures 0.5 x 0.3 x 0.4 cm and appears complex with septations. Right epididymal Doppler flow is normal. Moderate right hydrocele appears complex with septations. Right varicocele. Right scrotal wall thickness of 0.4 cm. LEFT: Left testicle measures 3.4 x 1.9 x 2.8 cm, volume 9.5 mL. No focal testicular parenchymal lesions are visualized. Spectral Doppler analysis of the arterial and venous flow is normal in the left testis. No left epididymal head cyst appreciated. Left epididymal Doppler flow is normal. Left varicocele. Moderate left hydrocele. Left scrotal wall thickening of 0.7 cm. US/US scrotum IMPRESSION: Enlargement of the bilateral testicles, right greater than left. Asymmetric scrotal wall thickening measuring 7 mm on the left and 4 mm on the right.
== END 2023-04-10 14:33 | disposition home or self-care (01) ==
LOC: HO.HMGCX 14:32
PROVIDERS: PCP Physician Assistant; Visit Provider Physician Assistant
DX: N50.89 Other specified disorders of the male genital organs (principal)
CPT/HCPCS: 76870

== ENCOUNTER 2023-05-14 15:07 | Outpatient (AMB) | payer BC, SELFPAY ==
--- NOTE | 2023-05-14 15:11 | MHC.OFFVIS ---
Intake Vital Signs 05/14/23 15:17 Height 6 ft 8 in Weight 283 lb 2 oz BMI 31.1 BP 128/84 Blood Pressure Location Lt brachial Position Sitting Pulse 90 Intake Visit Reasons: unilateral inguinal hernia Intake Note: Patient is seen in office for evaluation and treatment of a left inguinal hernia. Pt c/o: onset one year, lump left groin increase in size, painful at times, denies n/v/d/c US:04/10/23 Delivery Merchandiser Required: No Accompanied by: Self / Same As Patient Allergies No Known Allergies Allergy (Verified 05/14/23 15:16) HPI HPI Comments History of Present Illness Details 48-year-old male patient presenting for evaluation of a large lump in the left groin extending into the scrotum. He 1st noted the swelling approximately 1 year ago and since this time the lump has increased in size. He reports occasional discomfort especially with lifting and straining. He denies nausea, vomiting, fever, chills, diarrhea or constipation. He underwent ultrasound of the scrotum which revealed enlargement of the testicles left greater than right. Review of a previous CT abdomen and pelvis revealed bilateral fat containing inguinal hernias left much greater than right. He presents today to discuss possible repair of this left inguinal hernia. He also reports being scheduled for knee surgery in the next several weeks. He will be on medical leave during this time and is considering having the surgery after the knee surgery. 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 Cognitive needs: No Hearing needs: No Vision needs: Yes (glasses) Review of Systems Const All systems reviewed & are unremarkable except as noted in HPI and below Denies chills, Denies fever(s), Denies headache(s), Denies poor appetite and Denies weakness ENT Denies headache(s) Card Denies chest pain, Denies irregular heart rhythm, Denies palpitations and Denies dyspnea Resp Denies cough, Denies excessive phlegm production and Denies dyspnea GI Denies abdominal pain, Denies bloating, Denies change in bowel habits, Denies constipation, Denies heartburn, Denies diarrhea, Denies nausea and Denies vomiting Denies difficulty urinating and Denies urinary frequency Musc Denies back pain, Denies muscle weakness and Denies numbness Skin/Breast Denies changing lesions and Denies unusual bruising Neuro Denies headache(s), Denies numbness, Denies paresthesias and Denies weakness Psych Denies anxiety and Denies depression Endo Denies palpitations Nain/Lymph Denies lymphadenopathy Physical Exam Vital Signs: Last Vital Signs Pulse 90 05/14/23 15:17 BP 128/84 05/14/23 15:17 BMI result Body Mass Index 31.1 Const General: cooperative and no acute distress Nutritional Appearance: well nourished Orientation/consciousness: patient oriented x3 Limitations: no limitations HEENT Head: Yes normocephalic and Yes atraumatic Ears: hearing grossly normal bilaterally Resp Effort & Inspection: normal respiratory effort, no audible wheezes, no cough and no respiratory distress Cardio Jugular venous distension: no JVD GI Other: Abdomen soft and nondistended with normal bowel sounds. Examination in the standing position reveals a large left inguinal hernia which extends into the external ring and scrotum. The hernia increases in size with Valsalva and reduces with light pressure. There is minimal to no tenderness to palpation. No hernias noted on the right side. Inspection: Yes normal to inspection Abdomen image: 1. Site of hernia left groin Skin Other: Warm, dry, no rash Neuro General: patient oriented x3 Extrem General: Yes no clubbing, cyanosis or edema Assessment & Plan Assessment & Plan (1) Left inguinal hernia: Code(s): K40.90 - Unilateral inguinal hernia, without obstruction or gangrene, not specified as recurrent Plan 48-year-old male patient presenting with a large left inguinal hernia which is reducible. I recommended repair of this left inguinal hernia with mesh as an elective procedure. I reviewed the procedure, risks, and alternatives in detail and he consents to the surgery. He will be undergoing orthopedic surgery in near future and will schedule the hernia repair following this procedure. He is welcome to call sooner for any new concerns or questions. Coding Level of Care Code New Pt Level 4 (02028) Diagnoses Left inguinal hernia K40.90
[2023-05-14 15:17] VITALS: BP 128/84; PULSE 90; BMI 31.1
== END 2023-05-14 15:47 | disposition home or self-care (01) ==
PROVIDERS: PCP Physician Assistant; Visit Provider Surgery
DX: K40.90 Unilateral inguinal hernia, without obstruction or gangrene, not specified as recurrent (principal)
CPT/HCPCS: 99204

== ENCOUNTER → 2023-05-14 15:07 | Outpatient (BNVA) | payer BC, SELFPAY | PROVIDERS: PCP Physician Assistant; Visit Provider Surgery ==

== ENCOUNTER → 2023-05-19 14:56 | Outpatient (BNVA) | payer BC, SELFPAY | PROVIDERS: PCP Physician Assistant; Visit Provider Orthopaedic Surgery ==

== ENCOUNTER → 2023-06-15 10:29 | Outpatient (BNV) | payer BC, SELFPAY | PROVIDERS: Admitting Provider Orthopaedic Surgery; PCP Physician Assistant; Visit Provider Internal Medicine | DX: Z01.810 Encounter for preprocedural cardiovascular examination (principal); M17.11 Unilateral primary osteoarthritis, right knee | CPT/HCPCS: 93010 ==

== ENCOUNTER 2023-06-17 15:20 | Outpatient (AMB) | payer BC, SELFPAY ==
[2023-06-17 15:20] VITALS: BMI 31.1
--- NOTE | 2023-06-17 15:20 | A.OFFVIS_ITS ---
Vital Signs 06/17/23 15:20 Height 6 ft 8 in Weight 283 lb BMI 31.1 Intake Visit Reasons: pre-op RT TKA 06/22/23 D.R. Intake Note: Josue is a 47 year old male who presents with complaints of progressively worsening bilateral knee pains, right greater than left. The patient has undergone right knee arthroscopic surgery in the past. He got only temporary relief from that procedure. His pain has gotten worse over the last 6 years in spite of continued non operative treatments. He has done physical therapy which aggravated his pain. He has also had cortisone injections and viscosupplementation injections which gave him minimal relief. Has tried Tylenol and ibuprofen which gave him only mild relief. The patient is able to walk only short distances because of his pain. At this point his right knee pain is interfering with his activities of daily living and his ability to sleep well through the night. Allergies No Known Allergies Allergy (Verified 06/17/23 15:22) Medication List - Last Reconciled 06/18/23 by Alex Jiménez MD ibuprofen 800 mg PO DAILY PRN multivitamin 1 tab PO DAILY walker Folding front wheeled walker PFS Medical History Back pain History of herniated intervertebral disc Anxiety Asthma Arthritis Surgical History Hx of tonsillectomy S/P left knee arthroscopy History of exploratory laparotomy Social History Housing: House Are you a primary medicare biller to a significant other at home: No Do you presently have visiting nurse or other home services: No Alcohol intake: current Alcohol intake frequency: a few times a week Alcohol type: beer Patient Tobacco Use Status: Never used Tobacco e-Cigarette/Vaping Use: Never Used Second Hand Smoke Exposure: No service: No Current occupational status: employed 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 Cognitive needs: No Hearing needs: No Vision needs: Yes (glasses) Physical Exam Vital Signs: BMI result Body Mass Index 31.1 Const Other: Well-nourished well-developed very friendly male awake alert and oriented x3 in no acute distress Extrem Other: Bilateral lower extremity examination shows good capillary refill, no skin lesions noted, normal sensation light touch Right knee examination shows a minimal effusion, palpable crepitus with range of motion, pain with range of motion, range of motion from -3 degrees to 115 degrees, no instability Results Reviewed Results Reviewed: X-rays of the patient's right knee show end-stage degenerative joint disease with grade 4 [id number] arthritis, subchondral sclerosis, osteophyte formation, no acute bony abnormalities Assessment & Plan Assessment & Plan (1) Osteoarthritis of right knee: Code(s): M17.11 - Unilateral primary osteoarthritis, right knee Category: Medical Plan Mr. Garrett presents with progressively worsening right knee pain due to end-stage degenerative joint disease. I had a lengthy discussion with the patient regarding the treatment options. At this point he has failed non operative treatments as well as arthroscopic surgery. The risks and benefits of right total knee replacement surgery were discussed at length with the patient. The patient wishes to proceed with surgery. account services coordinator will be consulted following his surgery for home physical therapy and nursing. The patient will follow-up as instructed. Feel free to call me at any time should questions regarding his orthopedic management arise. I spent 20 minutes in reviewing the patient's records and imaging studies, seeing the patient and documenting in the medical record. Coding Level of Care Code Est Pt Level 3 (09851) Diagnoses Osteoarthritis of right knee M17.11
== END 2023-06-17 15:44 | disposition home or self-care (01) ==
PROVIDERS: PCP Physician Assistant; Visit Provider Orthopaedic Surgery
DX: M17.11 Unilateral primary osteoarthritis, right knee (principal)
CPT/HCPCS: 99213

== ENCOUNTER → 2023-06-17 15:20 | Outpatient (BNVA) | payer BC, SELFPAY | PROVIDERS: PCP Physician Assistant; Visit Provider Orthopaedic Surgery ==

== ENCOUNTER 2023-06-18 09:00 | Outpatient (AMB) | payer BC, SELFPAY ==
--- NOTE | 2023-06-18 09:16 | A.OFFPC_ITS ---
Vital Signs 06/18/23 09:21 Height 6 ft 8 in Weight 280 lb 6 oz BMI 30.8 BP 108/78 Blood Pressure Location Lt brachial Position Sitting Pulse 66 Pulse Source Pulse Oximeter Pulse Oximetry (%) 95 Oxygen Delivery Method Room Air Intake Visit Reasons: Rt Total Knee Replacement on 06/22/23 Intake Note: Patient is here for a Pre-op for Rt Total Knee replacement scheduled with Dr. Jiménez on 06/22/23. No EKG or labs required/all ready done by Dr. Jiménez. Uniforms Sales Representative Required: No Accompanied by: Self / Same As Patient Allergies No Known Allergies Allergy (Verified 06/18/23 09:31) Medication List - Last Reconciled 06/18/23 by Javi Villarreal PA-C ibuprofen 800 mg PO DAILY PRN multivitamin 1 tab PO DAILY walker Folding front wheeled walker Tobacco use date assessed: 04/06/23 Dental Screening Dental Screen Date: 04/06/23 HPI Rt Total Knee Replacement on 06/22/23 HPI Details Patient is a 48-year-old male here today for preop visit. He is due for right total knee arthroplasty on 06/22/2023. Patient has a past medical history bilateral severe osteoarthritis of knees. Patient does not have any past medical history of CVA, mi or Congestive heart failure. Patient is not on any anticoagulation or anti-platelet therapy at this time. Reviewed most recent labs and noted slight anemia/ thrombocytopenia though all others are stable. Patient to have an idiopathic thrombocytopenia as in records he has had thrombocytopenia dating back to 1996. He otherwise denies being symptomatic with any bruising, epistaxis ect.. Otherwise EKG normal sinus rhythm. --> he does inform me that his bedroom i s on the 2nd floor and he needs to go up 12 stairs to get to his bedroom. He is asking for a temporary hospital bed to put in his living room to recover from knee arthroplasty surgery. Laboratory Tests 06/15/23 10:26 RBC 4.44 L Hgb 13.6 L Creatinine 0.87 [facility] Medical History Back pain History of herniated intervertebral disc Anxiety Asthma Arthritis Surgical History Hx of tonsillectomy S/P left knee arthroscopy History of exploratory laparotomy Social History Housing: House Are you a primary childcare administrator to a significant other at home: No Do you presently have visiting nurse or other home services: No Alcohol intake: current Alcohol intake frequency: a few times a week Alcohol type: beer Patient Tobacco Use Status: Never used Tobacco e-Cigarette/Vaping Use: Never Used Second Hand Smoke Exposure: No service: No Current occupational status: employed 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 Savage Ramsey, Salma Morin, Justin Torres and colleagues, with an educational mariano from [employer]. Review of Systems Const Denies headache(s) Eyes Denies loss of vision ENT Denies vertigo, Denies dizziness, Denies headache(s) and Denies sore throat Card Denies chest pain, Denies leg edema and Denies lightheadedness Resp Denies cough, Denies hemoptysis and Denies wheezing GI Denies abdominal pain, Denies melena, Denies constipation, Denies diarrhea and Denies vomiting Denies dysuria, Denies urinary frequency and Denies urinary urgency Musc Denies arthralgias, Denies joint swelling, Denies numbness and Denies tingling Neuro Denies Abnormal speech present, Denies behavioral changes, Denies vertigo, Denies dizziness, Denies headache(s), Denies loss of vision, Denies memory loss, Denies numbness and Denies tingling Psych Denies anxiety, Denies behavioral changes, Denies depression, Denies memory loss and Denies panic attacks Nain/Lymph Denies easy bleeding and Denies easy bruising Aller/Immun Denies wheezing Physical exam (Primary Care) Vital Signs: Last Vital Signs Pulse 66 06/18/23 09:21 BP 108/78 06/18/23 09:21 Pulse Ox 95 06/18/23 09:21 Oxygen Delivery Method Room Air 06/18/23 09:21 BMI result Body Mass Index 30.8 Tobacco/Smoking Status: Tobacco use Status Tobacco use date assessed 04/06/23 06/18/23 09:16 Patient Tobacco Use Status Never used Tobacco 06/18/23 09:16 e-Cigarette/Vaping Use Never Used 06/18/23 09:16 Thrive Assessment: Date of Thrive Assessment Date Thrive assessed 04/06/23 06/18/23 09:16 Const General: healthy appearing, no acute distress, alert and awake Nutritional Appearance: well nourished Orientation/consciousness: oriented to person, oriented to place and oriented to time HENMT Ears: TM's normal bilaterally General nose exam: Normal nasal mucous membranes and turbinates present Eyes Conjunctivae: conjunctivae normal Sclerae: sclerae normal Pupils: Equal, round and reactive pupils present Neck Neck: Yes no lymphadenopathy and Yes no JVD Thyroid: Thyroid normal Carotids: no bruits Resp Effort & Inspection: normal respiratory effort and not tachypneic Auscultation: no crackles, no rales, no rhonchi and no wheezes Cardio Rate: regular rate Rhythm: regular rhythm Heart sounds: no murmurs and normal S1 and S2 GI Palpation (GI): Soft to palpation, nontender, no hepatomegaly and no splenomegaly Auscultation: normal bowel sounds Skin General skin exam: no rashes or lesions noted and dry skin Neuro General: oriented to person, oriented to place and oriented to time Cranial nerves: Yes Equal, round and reactive pupils present Speech: No Abnormal speech present Gait exam (Neuro): Normal gait present Motor exam (neuro): no tremor noted Extrem Right upper extremity: full ROM Left upper extremity: full ROM Right lower extremity: full ROM; no edema Left lower extremity: full ROM; no edema Psych Mental Status: mental status grossly normal Speech and movement: Normal speech and movement present Affect: normal affect Attitude: cooperative Thought process: Normal thought process present Assessment and Plan Assessment & Plan (1) Pre-op evaluation: Code(s): Z01.818 - Encounter for other preprocedural examination Plan: Patient's vitals, labs and most recent EKG all stable. Patient medically clear for needed total knee arthroplasty (2) Osteoarthritis of right knee: Code(s): M17.11 - Unilateral primary osteoarthritis, right knee Qualifiers: Osteoarthritis type: primary Qualified Code(s): M17.11 - Unilateral primary osteoarthritis, right knee Plan: As above (3) Thrombocytopenia: Code(s): D69.6 - Thrombocytopenia, unspecified Plan: As per HPI patient seems to have idiopathic thrombocytopenia even dating back to 1996. Otherwise asymptomatic. Medications: New hospital bed use daily 1 ea 0RF M17.11 - Unilateral primary osteoarthritis, right knee, Z96.641 - Presence of right artificial hip joint hospital bed use daily 1 ea 0RF M17.11 - Unilateral primary osteoarthritis, right knee, Z96.641 - Presence of right artificial hip joint Coding Level of Care Code Est Pt Level 4 (00266) Diagnoses Pre-op evaluation Z01.818 Primary osteoarthritis of right knee M17.11 Osteoarthritis type: primary Thrombocytopenia D69.6
[2023-06-18 09:21] VITALS: BP 108/78; PULSE 66; O2SAT 95; BMI 30.8
== END 2023-06-18 10:24 | disposition home or self-care (01) ==
PROVIDERS: PCP Physician Assistant; Visit Provider Physician Assistant
DX: Z01.818 Encounter for other preprocedural examination (principal); M17.11 Unilateral primary osteoarthritis, right knee; D69.6 Thrombocytopenia, unspecified
CPT/HCPCS: 99214

== ENCOUNTER 2023-06-22 06:10 | Inpatient (IN) | payer BC, SELFPAY ==
--- NOTE | 2023-06-15 | ECG_ITS ---
Test Reason : preop Blood Pressure : / mmHG Vent. Rate : 066 BPM Atrial Rate : 066 BPM P-R Int : 114 ms QRS Dur : 086 ms QT Int : 398 ms P-R-T Axes : 033 042 040 degrees QTc Int : 417 ms Normal sinus rhythm Normal ECG When compared with ECG of 19-OCT-2020 17:42, No significant change was found Referred By: Lina Heredia Electronically Signed By:ELLY REDD
[2023-06-15 09:30] VITALS: BP 124/81; PULSE 86; RESP 20; O2SAT 95; BMI 32.3
--- NOTE | 2023-06-15 09:45 | P.CONAN_ITS ---
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 No issues since childhood Thrombocytopenia. No previous w/u. Denies excessive bleeding, bruising. No hx epitaxis. Per PCP clearance, idopathic dating back to . PMFSH Active Problems Active Problems: All Active Problems Left inguinal hernia (Acute) Screening for diabetes mellitus (DM) (Acute) Colon cancer screening (Acute) Annual physical exam (Acute) Arthritis of right knee (Acute) Arthritis of left knee (Acute) Right knee pain (Acute) Left knee pain (Acute) Bilateral knee pain (Acute) Scrotal fullness (Acute) Enlarged testicle (Acute) Chronic knee instability (Acute) Past Medical History Medical History Back pain History of herniated intervertebral disc Anxiety Asthma Arthritis Surgical History Surgical History Hx of tonsillectomy S/P left knee arthroscopy History of exploratory laparotomy Social History Social History Housing: House Are you a primary progressive care unit registered nurse to a significant other at home: No Do you presently have visiting nurse or other home services: No Alcohol intake: current Alcohol intake frequency: a few times a week Alcohol type: beer Patient Tobacco Use Status: Never used Tobacco e-Cigarette/Vaping Use: Never Used Second Hand Smoke Exposure: No Use of substances other than those prescribed or required for medical reasons: Yes Substance Use Type Other:: CBD Substance Use Frequency: Occasionally Have you been hit, kicked, punched, or otherwise hurt by someone within the past year? 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 Cognitive needs: No Hearing needs: No Vision needs: Yes (glasses) Meds Allergies Allergy/AdvReac Type Severity Reaction Status Date / Time No Known Allergies Allergy Verified 06/22/23 06:40 Home Medications ?Medication ?Instructions ?Recorded ?Confirmed ?Last Taken ?Type ibuprofen 200 mg tablet 800 mg PO DAILY PRN Pain 06/15/23 06/22/23 06/14/23 History multivitamin 1 tab PO DAILY 06/15/23 06/22/23 06/14/23 History Exam Height,Weight and Vital Signs: Height 6 ft 7 in Weight 130.181 kg Last Vital Signs Pulse 86 06/15/23 09:30 Resp 20 06/15/23 09:30 BP 124/81 06/15/23 09:30 Pulse Ox 95 06/15/23 09:30 O2 Del Method Room Air 06/15/23 09:30 Pertinent Lab Results Pertinent Lab Results: Lab Results 06/15/23 06/15/23 06/15/23 Range/Units 09:40 10:18 10:26 WBC 5.2 (4.8-10.8) X10*3/uL RBC 4.44 L (4.60-5.80) X10*6/uL Hgb 13.6 L (14.0-18.0) g/dl Hct 40.5 L (42.0-52.0) % MCV 91.2 (80.0-98.0) fL MCH 30.6 (27.0-33.0) pg MCHC 33.6 (31.0-36.0) g/dl RDW 13.6 (11.0-16.0) % Plt Count 111 L (160-400) X10*3/uL MPV 13.6 H (9.4-12.4) fL Absolute Nucleated RBC 0.000 (0.0-0.012) X10*3/uL Nucleated RBC % (auto) 0.0 (0.0-0.2) /100WBC PT 11.3 (11.1-13.3) SEC INR 0.9 (0.9-1.1) APTT 33.0 (26.0-36.8) SEC Sodium 139 (135-145) mmol/L Potassium 4.6 (3.3-5.1) mmol/L Chloride 106 (96-108) mmol/L Carbon Dioxide 27 (22-29) mmol/L Anion Gap 11 L (12-20) BUN 15 (9-16) mg/dL Creatinine 0.87 (0.5-1.4) mg/dL Estim Creat Clear Calc 159.0 Estimated GFR > 60 Random Glucose 90 (60-115) mg/dL Calcium 9.1 (8.4-10.2) mg/dL Nasal Screen MRSA (PCR) NEGATIVE (Negative) Nasal S. aureus Screen POSITIVE A (Negative) Nasal MRSA/S.aureus Interp SEE NOTE Blood Type O Positive Antibody Screen NEGATIVE Narrative Narrative: EKG 05/2023 Vent. Rate : 066 BPM Atrial Rate : 066 BPM P-R Int : 114 ms QRS Dur : 086 ms QT Int : 398 ms P-R-T Axes : 033 042 040 degrees QTc Int : 417 ms Normal sinus rhythm Normal ECG When compared with ECG of 19-OCT-2020 17:42, No significant change was found Airway Mallampati Class: II TM Dist: >3cm Neck ROM: Full Loose/Missing/Broken Teeth: Yes (Molars pulled) Heart: RRR Lungs: CTAB Assessment and Plan Assessment Anesthesia Assessment: Anesthesia Plan Discussed and PAT Visit Documented by User: Elicia Santos MD 06/22/23 08:33 [facility] Past Medical History Medical History Back pain History of herniated intervertebral disc Anxiety Asthma Arthritis Family History Family history of problems with anesthesia: No Surgical History Surgical History Hx of tonsillectomy S/P left knee arthroscopy History of exploratory laparotomy History of Problems with Anesthesia: No Social History Social History Housing: House Are you a primary progressive care unit registered nurse to a significant other at home: No Do you presently have visiting nurse or other home services: No Alcohol intake: current Alcohol intake frequency: a few times a week Alcohol type: beer Patient Tobacco Use Status: Never used Tobacco e-Cigarette/Vaping Use: Never Used Second Hand Smoke Exposure: No Use of substances other than those prescribed or required for medical reasons: Yes Substance Use Type Other:: CBD Substance Use Frequency: Occasionally Have you been hit, kicked, punched, or otherwise hurt by someone within the past year? 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 Cognitive needs: No Hearing needs: No Vision needs: Yes (glasses) Meds Allergies Allergy/AdvReac Type Severity Reaction Status Date / Time No Known Allergies Allergy Verified 06/22/23 06:40 Home Medications ?Medication ?Instructions ?Recorded ?Confirmed ?Last Taken ?Type ibuprofen 200 mg tablet 800 mg PO DAILY PRN Pain 06/15/23 06/22/23 06/14/23 History multivitamin 1 tab PO DAILY 06/15/23 06/22/23 06/14/23 History Assessment and Plan Assessment Anesthesia Assessment: Chart Reviewed Final Anesthetic Review Family History of Problems with Anesthesia: No History of Problems with Anesthesia: No NPO: Yes ASA Class: II Final Preanesthetic Review: No Changes in Pt Med Stat, Meds/Allgs Chart Reviewed, Consent Obtained/Reviewed and Anes Risks/Benef Reviewed Patient Risk: Low Procedure Risk: Intermediate Anesthetic Plan Anesthetic Plan: Spinal and Regional Block Disposition: Standard PACU
[2023-06-15 11:12] LABS: Hematocrit 40.5 % (42.0-52.0); Hemoglobin 13.6 g/dl (14.0-18.0); Mean Corpuscular HGB Conc 33.6 g/dl (31.0-36.0); Mean Corpuscular Hemoglobin 30.6 pg (27.0-33.0); Mean Corpuscular Volume 91.2 fL (80.0-98.0); Mean Platelet Volume 13.6 fL (9.4-12.4); Platelet Count 111 X10*3/uL (160-400); Red Blood Count 4.44 X10*6/uL (4.60-5.80); Red Cell Distribution Width 13.6 % (11.0-16.0); White Blood Count 5.2 X10*3/uL (4.8-10.8)
[2023-06-15 11:22] LABS: INTERNATIONAL NORM RATIO 0.9 (0.9-1.1); Prothrombin Time 11.3 SEC (11.1-13.3)
[2023-06-15 11:48] LABS: Anion Gap 11 (12-20); Blood Urea Nitrogen 15 mg/dL (9-16); Calcium 9.1 mg/dL (8.4-10.2); Carbon Dioxide 27 mmol/L (22-29); Chloride 106 mmol/L (96-108); Estimated Glomerular Filt Rate > 60; Glucose Random 90 mg/dL (60-115); Potassium 4.6 mmol/L (3.3-5.1); Sodium 139 mmol/L (135-145)
[2023-06-15 11:52] LABS: MRSA Nasal PCR NEGATIVE (Negative); SA Nasal PCR POSITIVE (Negative)
[2023-06-22 06:20] VITALS: BMI 30.8
[2023-06-22] MEDS: Lactated Ringers 1,000 ML 100 ML IVCONT ×3 (06:41→16:42)
[2023-06-22 10:30] VITALS: BP 95/63; PULSE 70; RESP 12; TEMP 36.6; O2SAT 98
--- NOTE | 2023-06-22 10:32 | PM.OP ---
Brief Operative Note Date of Service: 06/22/23 Pre-op diagnosis: Right knee degenerative joint disease Post-op diagnosis: same Procedure: Right total knee arthroplasty Implants: [place] [employer] cemented posterior stabilized total knee arthroplasty with a femoral component size 7 right, universal tibial component size 7, polyethylene liner size 7 with 14 mm of thickness, an asymmetric patellar component size 38 with a 11 mm of thickness, tibial stem size 12 mm in diameter by 50 mm in length Surgeon: Alex Jiménez MD Anesthesia: regional and spinal Was an Photoengraving Apprentice used for this Procedure?: No Photoengraving Apprentice: Hellen Larry Estimated blood loss (mL): 200 Pathology: other (Bony fragments from the right femur, tibia and patella) Condition: stable Disposition: PACU
--- NOTE | 2023-06-22 10:34 | P.OP_ITS ---
Operative Note Operative Note Date of Service: 06/22/23 Narrative: After the patient was identified as Josue Garrett and his right knee was initialed by myself the patient was brought to the holding area where a right leg nerve block was performed by the anesthesiologist in routine fashion. The patient was then brought to the operating room where conscious sedation and spinal anesthesia were performed by the anesthesiologist in routine fashion. The patient was given 2 g of IV Ancef preoperatively for infection prophylaxis. The patient's right lower extremity was prepped and draped in sterile fashion. A formal time-out was completed. The patient's right knee was placed onto a small bump to produce 30? of knee flexion during exposure. A #10 scalpel blade was used to make a midline incision extending 1 handbreadth proximal and distal to the patella. A second #10 scalpel blade was used to dissect the subcutaneous tissues down to the extensor mechanism. The subcutaneous flaps were maintained as thick as possible. A medial parapatellar arthrotomy was then performed using a #10 scalpel blade. The arthrotomy was begun just medial to the patellar tendon. The arthrotomy was continued 1 cm medial to the patella and then 5 mm into the medial aspect of the quadriceps tendon. The infrapatellar fat pad was partially excised to help with exposure. The soft tissue retinaculum was raised one-half of the way around the medial aspect of the proximal tibia. The patella was everted and the knee was flexed to 90?. There was no injury to the patellar tendon or its insertion onto the tibial tubercle. A drill bit was introduced into the distal aspect of the femur with a starting point 1 cm anterior to the origin of the posterior cruciate ligament. The intramedullary alignment kobe was put into place. The distal alignment guide was set for a 5 degree valgus cut. The distal cutting block was put into place and was held with 4 pins. The intramedullary alignment kobe was removed. Soft tissues were retracted in the distal femoral cut was made using a sagittal saw. The distal aspect of the femur measured to be a size 7 right component. Two drill holes were placed into the distal aspect of the femur marking 3? of external rotation. The distal cutting block was impacted into place and was held with 2 pins. Soft tissues were retracted and the 4 distal femoral cuts were made using a sagittal saw. Final notching and drilling of the distal aspect of the femur were performed in routine fashion. The trial femoral component was impacted into place. The knee was taken through a full range of motion. The patella tracked well. The patella was everted and the knee was flexed to 90?. The trial component was removed and our attention was directed to the proximal tibia. The medial and lateral menisci were removed using a #10 scalpel blade. A small rim of the medial meniscus was left intact to help prevent injury to the medial collateral ligament. A drill bit was then introduced into the proximal tibia with a starting point midway from medial to lateral and one-third of the way posteriorly. The intramedullary alignment kobe was put into place. The proximal tibial cutting guide was placed over the alignment kobe in line with the 2nd toe. The guide was held in place using 3 pins. The intramedullary alignment kobe was removed. Soft tissues were retracted and the proximal tibial cut was made using a sagittal saw. Inspection of the proximal tibia showed a bony cyst along the medial tibial plateau measuring 5 mm x 5 mm x 10 mm. Because of the presence of the cyst the decision was made to use a tibial stem to help prevent loosening of the tibial component in the future. The proximal tibia measured to be a size 7 component. The tibial tray was put into place with a 14 mm liner. The femoral component was impacted into place. The knee was taken through a full range of motion. There was full flexion and full extension. There was no instability with varus or valgus stress testing with the knee in flexion or extension. The patella tracked well with no medially directed force. The rotation of the tibial tray was marked using electrocautery with the knee in extension. The patella was everted and the knee was flexed to 90?. All trial components were removed. The tibial tray was placed onto the proximal tibia in line with the electrocautery colten. The tray was held in place using 3 pins. Final broaching and drilling of the proximal tibia were performed in routine fashion. The trial liner and trial femoral component were put into place. The knee was brought into extension and our attention was directed to the patella. The patella measured 25 mm in thickness. The patellar resection guide was set for a 10 mm resection. Soft tissues were retracted and the patella cut was made using a sagittal saw. The remaining patella measured 15 mm in thickness. The undersurface of the patella was measured to be a size 38 asymmetric component. Three drill holes were placed into the undersurface of the patella in routine fa shion. The trial component was put into place. The knee was taken through a full range of motion. The patella tracked well. The patella was everted and the knee was flexed to 90?. All trial components were removed. The knee was once again brought into extension and placed onto a small bump. The knee joint was irrigated with copious amounts of normal saline solution via pulse lavage while the cement was mixed. The patella was everted and the knee was flexed to 90?. A small amount of cement was placed along the posterior aspects of the tibial and femoral components. Cement was then pressurized into the proximal tibia. The tibial component was impacted into place. Any excess cement was removed. The polyethylene liner was then impacted into place. Cement was then pressurized into the distal aspect of the femur. A small amount of cement was placed into the intramedullary canal to help reduce bleeding. The femoral component was impacted into place. Any excess cement was removed. The knee was then brought into extension. Cement was pressurized into the undersurface of the patella. The patellar component was put into place and was held with a patella clamp. Any excess cement was removed. Once the cement had hardened the patellar clamp was removed. The knee was taken through a full range of motion. There was full flexion and extension. There was no instability with varus or valgus stress testing with the knee in flexion or extension. The patella tracked well with no medially directed force. The knee joint was irrigated with copious amounts of normal saline solution via pulse lavage. Any significant bleeding vessels were coagulated. The patient's right knee was placed onto a small bump. The arthrotomy was closed with #2 Ethibond [id number] inter rupted suture as well as #1 Vicryl [id number] interrupted suture. The wound was once again irrigated. The subcutaneous tissues were closed with 0 Vicryl and 2-0 Vicryl interrupted sutures. The skin was closed with skin yunier. Dry sterile dressing and Guillaume bandages were placed over the patient's right knee. The patient was awake and alert. The patient was transferred to the recovery room in stable condition.
[2023-06-22 10:45] VITALS: BP 102/55; PULSE 66; RESP 16; TEMP 36.6; O2SAT 96
[2023-06-22 11:29] VITALS: BP 101/71; PULSE 63; RESP 18; TEMP 36.4; O2SAT 93
[2023-06-22] MEDS: Multivitamin TABLET 1 TAB PO (11:29)
[2023-06-22] MEDS: Celecoxib 200 MG CAPSULE PO ×2 (11:30→20:45)
[2023-06-22] MEDS: Aspirin 325 MG TABLET PO ×2 (11:30→18:10)
[2023-06-22] MEDS: methocarbamoL 500 MG TABLET PO ×3 (11:30→20:45)
[2023-06-22] MEDS: oxyCODONE HCl ER 10 MG TAB.ER.12H PO ×2 (11:30→20:44)
[2023-06-22] MEDS: 0.9 % Sodium Chloride Flush 3 ML SYRINGE IVFLUSH (11:32)
--- NOTE | 2023-06-22 12:16 | PHA.MEDREC ---
Pharmacy Consult ? Medication Reconciliation Pharmacy has reviewed the medication reconciliation completed by nursing.
[2023-06-22 15:17] VITALS: BP 106/62; PULSE 56; RESP 20; TEMP 36.5; O2SAT 96
--- NOTE | 2023-06-22 15:20 | HO.PM.IMCN ---
History of Present Illness Data of Consult Service Date: 06/22/23 Primary Care Provider: Javi Villarreal PA-C HPI 48-year-old man admitted by Orthopedic surgery and is status post right total knee arthroplasty. Surgery was unremarkable. Patient has been able to eat and drink without any nausea or vomiting. He did have an episode of hypotension this afternoon with blood pressure of 70/48 with associated dizziness. Blood pressure did improve with position change and IV fluids. He denied chest pain, shortness for breath, nausea, vomiting, diarrhea. He is hemodynamically stable at this time. Currently resting in bed comfortably. Review of Systems Review of Systems: Denies any recent fever chills or decrease in appetite respiratory denies shortness breath or cough cardiovascular denies chest pain gastrointestinal denies any dysphagia abdominal pain nausea vomiting or diarrhea genitourinary denies any dysuria frequency or hematuria musculoskeletal right knee pain neuropsych denies any weakness or seizures all other systems reviewed are negative [facility] Medical History Back pain History of herniated intervertebral disc Anxiety Asthma Arthritis Surgical History Hx of tonsillectomy S/P left knee arthroscopy History of exploratory laparotomy Social History Household Members: Spouse and Family Housing: House Are you a primary health care / medical job titles to a significant other at home: No Do you presently have visiting nurse or other home services: No Alcohol intake: current Alcohol intake frequency: a few times a week Alcohol type: beer Patient Tobacco Use Status: Never used Tobacco e-Cigarette/Vaping Use: Never Used Second Hand Smoke Exposure: No Use of substances other than those prescribed or required for medical reasons: No Substance Use Type Other:: CBD Substance Use Frequency: Occasionally Have you been hit, kicked, punched, or otherwise hurt by someone within the past year? If so, by whom?: No Do you feel safe in your current relationship?: Yes Is there a partner from a previous relationship who is making you feel unsafe now?: No Are you made to feel afraid or neglected: No Are you DNR?: No Advance Directives: No Advance Directives Information Provided: Yes Advance Directives on File: No Do you have a plan to hurt others: No Plan Recently lost weight without trying: No How much weight loss: Not applicable Eating poorly because of decreased appetite: No Nutrition screen score: 0 Nutrition Risks: No Nutritional Risk Poor oral hygiene: No service: No Current occupational status: employed 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 Cognitive needs: No Hearing needs: No Vision needs: Yes (glasses) Meds Allergies Allergy/AdvReac Type Severity Reaction Status Date / Time No Known Allergies Allergy Verified 06/22/23 06:40 Active Medications: Current Medications Acetaminophen (Acetaminophen 325 Mg Tablet) 650 mg PO Q6H PRN PRN Reason: Pain, Mild (Pain Scale 1-3) Aspirin (Aspirin 325 Mg Tablet) 325 mg PO Q12H [facility] Celecoxib (Celecoxib 200 Mg Capsule) 200 mg PO BID [facility] Last Admin: 06/22/23 11:30 Dose: 200 mg Gabapentin (Gabapentin 100 Mg Capsule) 100 mg PO BEDTIME [facility]INA Hydromorphone HCl (Hydromorphone Hcl 0.5 Mg/0.5 Ml Syringe) 0.25 mg IVPUSH Q4H PRN; Protocol PRN Reason: Pain, Severe (Pain Scale 7-10) Hydromorphone HCl (Hydromorphone Hcl 0.5 Mg/0.5 Ml Syringe) 0.5 mg IVPUSH Q4H PRN; Protocol PRN Reason: Pain, Severe (Pain Scale 7-10) Lactated Ringer's (Lr) 1,000 mls @ 100 mls/hr IVCONT .Q10H [facility] Last Infusion: 06/22/23 10:41 Dose: Infused Lactated Ringer's (Lr) 1,000 mls @ 100 mls/hr IVCONT .Q10H [facility] Last Admin: 06/22/23 11:32 Dose: 100 mls/hr Cefazolin Sodium 3 gm/ Sodium (Chloride) 100 mls @ 200 mls/hr IV Q8H [facility] Stop: 06/22/23 23:29 Methocarbamol (Methocarbamol 500 Mg Tablet) 500 mg PO TID [facility] Last Admin: 06/22/23 11:30 Dose: 500 mg Multivitamins/Vitamin C (Multivitamin Tablet) 1 tab PO DAILY [facility] Last Admin: 06/22/23 11:29 Dose: 1 tab Ondansetron HCl (Ondansetron Hcl 4 Mg/2 Ml Vial) 4 mg IVPUSH Q8H PRN PRN Reason: Nausea and Vomiting Oxycodone HCl (Oxycodone Hcl Immed Release 5 Mg Tablet) 5 mg PO Q4H PRN PRN Reason: Pain, Moderate(Pain Scale 4-6) Oxycodone HCl (Oxycodone Hcl Er 10 Mg Tab.Er.12h) 10 mg PO BID [facility] Last Admin: 06/22/23 11:30 Dose: 10 mg Oxycodone HCl (Oxycodone Hcl Immed Release 5 Mg Tablet) 10 mg PO Q4H PRN PRN Reason: Pain, Moderate(Pain Scale 4-6) Senna (Sennosides 8.6 Mg Tablet) 17.2 mg PO BEDTIME PRN PRN Reason: Constipation Sodium Chloride (0.9 % Sodium Chloride Flush 3 Ml Syringe) 3 ml IVFLUSH QSHIFT [facility] Last Admin: 06/22/23 11:32 Dose: 3 ml Home Medications ?Medication ?Instructions ?Recorded ?Confirmed ?Last Taken ?Type ibuprofen 200 mg tablet 800 mg PO DAILY PRN Pain 06/15/23 06/22/23 06/14/23 History multivitamin 1 tab PO DAILY 06/15/23 06/22/23 06/14/23 History Physical Exam Vital Signs and Narrative: Vital Signs: Last Vital Signs Temp 97.7 F 06/22/23 15:17 Pulse 56 06/22/23 15:17 Resp 20 06/22/23 15:17 BP 106/62 06/22/23 15:17 Pulse Ox 96 06/22/23 15:17 O2 Del Method Room Air 06/22/23 15:17 O2 Flow Rate 6 06/22/23 10:30 BMI result Body Mass Index 30.8 Appearing in no acute distress head is normocephalic atraumatic eyes pupils are PERRLA sclera is anicteric mouth throat mucous membranes are intact and moist neck is supple no lymphadenopathy, no JVD noted lung sounds are clear to auscultation heart regular rate rhythm, clear S1, S2 positive bowel sounds, abdomen is soft, nontender neuro patient is alert x3, no focal deficits Right knee surgical dressing intact, surgical incision not visualized Results Labs 06/15/23 10:26 06/15/23 10:26 Assessment and Plan (1) S/P total right hip arthroplasty: Status: Acute Plan 48-year-old man admitted by Orthopedic surgery and is status post right total knee arthroplasty Right total knee arthroplasty Management as per surgical team Pain management Hypotension Postoperative, BP down to 70/48 Improved after position change and IV fluid bolus Continue to monitor blood pressure closely DVT prophylaxis with full-dose aspirin Full code Medical consultation complete. Will sign off
--- NOTE | 2023-06-22 15:21 | PC.NURSE ---
Addendum entered by Arlene Boudreaux RN 06/22/23 17:01: BP rechecked 121/80. Addendum entered by Arlene Boudreaux RN 06/22/23 15:26: POC checked. POC 111. Original Note: pt reports felling dizzy, weak and nauseous. VSS BP 102/68, P 68, R 18 O2 100 on room air T 97.7 orally. Pt sat up at edge of bed with PT. Pt pallor increased BP decreased to 78/48. Pt safely laid back in bed with t/w and PT. Raquel Knowles HOG FEEDER to bedside. Repeat BP 106/62. Pt reports slowly feeling better.
[2023-06-22 15:23] LABS: Glucose, Whole Blood 111 mg/dL (60-115)
[2023-06-22 15:24] VITALS: BP 78/48
--- NOTE | 2023-06-22 17:01 | PC.NURSE ---
pt voided 200ml pale yellow urine in urinal. Post void bladder scan showed 1411ml. Pt straight cath'd per MD order. Straight cath'd for 1650ml pale yellow urine.
[2023-06-22] MEDS: oxyCODONE HCl Immed Release 5 MG TABLET PO (18:10)
[2023-06-22] MEDS: ceFAZolin Sodium 3 GM in 0.9 % Sodium Chloride 100 ML IV (18:38)
[2023-06-22 19:32] VITALS: BP 115/63; PULSE 80; RESP 20; TEMP 36.7; O2SAT 95
[2023-06-22] MEDS: Gabapentin 100 MG CAPSULE PO (20:45)
[2023-06-22] MEDS: Melatonin 3 MG TABLET 6 MG PO (22:26)
[2023-06-22] MEDS: oxyCODONE HCl Immed Release 5 MG TABLET 10 MG PO (22:30)
[2023-06-23] MEDS: ceFAZolin Sodium 3 GM in 0.9 % Sodium Chloride 100 ML IV (02:34)
[2023-06-23] MEDS: Lactated Ringers 1,000 ML 100 ML IVCONT (02:38)
[2023-06-23] MEDS: ondansetron HCL 4 MG/2 ML VIAL IVPUSH (02:46)
[2023-06-23 02:57] VITALS: BP 126/75; PULSE 77; RESP 16; TEMP 36; O2SAT 93
--- NOTE | 2023-06-23 03:06 | PC.NURSE ---
06/22/23 2230 voided 50 cc in urinal bladder scanned for 297 cc.0240 voided 100 cc in urinal bladder scanned for 329 cc got pt oob to commode voided another 100 cc.c/0 nausea medicated with zofran 4mg IV at 0245.Back to bed resting at present time.
[2023-06-23] MEDS: Aspirin 325 MG TABLET PO ×2 (05:43→17:58)
[2023-06-23 05:49] LABS: MANUAL DIFF FLAG NO
[2023-06-23 06:08] LABS: Basophils Percent Auto 0.3 % (0-2); Eosinophils Percent Auto 0.2 % (0-4); Hematocrit 33.5 % (42.0-52.0); Hemoglobin 11.4 g/dl (14.0-18.0); Imm Gran Abs Auto 0.06 X10*3/uL (0.00-0.03); Imm Gran Pct Auto 0.5 % (0.0-0.4); Lymphocytes Absolute Auto 1.8 X10*3/uL (1.2-4.9); Lymphocytes Percent Auto 15.1 % (20-40); Mean Corpuscular Hemoglobin 30.9 pg (27.0-33.0); Mean Corpuscular Volume 90.8 fL (80.0-98.0); Monocytes Absolute Auto 1.2 X10*3/uL (0.1-1.2); Monocytes Percent Auto 10.5 % (2-11); Neutrophils Absolute Auto 8.6 x10*3/uL (2.0-8.3); Neutrophils Percent Auto 73.4 % (45-73); Platelet Count 120 X10*3/uL (160-400); Red Blood Count 3.69 X10*6/uL (4.60-5.80); Red Cell Distribution Width 13.6 % (11.0-16.0); White Blood Count 11.7 X10*3/uL (4.8-10.8)
[2023-06-23 06:11] LABS: Anion Gap 13 (12-20); Blood Urea Nitrogen 11 mg/dL (9-16); Calcium 8.5 mg/dL (8.4-10.2); Carbon Dioxide 23 mmol/L (22-29); Chloride 104 mmol/L (96-108); Creatinine Clr Calc Pharmacy 173.1; Estimated Glomerular Filt Rate > 60; Glucose Fasting 158 mg/dL (60-99); Potassium 3.8 mmol/L (3.3-5.1); Sodium 136 mmol/L (135-145)
--- NOTE | 2023-06-23 06:34 | PC.NURSE ---
oob to commode voided 200 cc bladder scanned for 358 cc.
[2023-06-23 06:55] VITALS: BP 145/85; PULSE 79; RESP 16; TEMP 36.6; O2SAT 96
--- NOTE | 2023-06-23 07:48 | P.PNOP_ITS ---
Subjective Subjective Date of Service: 06/23/23 Interval history: POD1 s/p RT TKA no overnight events resting in bed, pain is better managed has some urinary retention Physical Exam Vital Signs: Vital Signs: Last Vital Signs Temp 98 F 06/23/23 06:55 Pulse 79 06/23/23 06:55 Resp 16 06/23/23 06:55 BP 145/85 H 06/23/23 06:55 Pulse Ox 96 06/23/23 06:55 O2 Del Method Room Air 06/23/23 06:55 O2 Flow Rate 6 06/22/23 10:30 BMI result Body Mass Index 30.8 Const: General: cooperative, healthy appearing and no acute distress Resp: Effort & Inspection: normal respiratory effort and able to speak in complete sentences Cardio: Rate: regular rate Peripheral pulses: Peripheral pulses 2+ throughout GI: Palpation (GI): Soft to palpation Skin: General skin exam: no rashes or lesions noted Extrem: Other: bandage clean dry and intact. [place] intact. No erythema or joint effusion. Calf supple nontender. Neurovascularly intact. Procedures Date of Service Date of Service: 06/23/23 Progress Note: A&P Assessment and plan (1) Status post total right knee replacement: Status: Acute Assessment and Plan: * Continue pain mgmnt * Begin Aspirin for dvt ppx * begin PT for RT TKA * Flomax for urinary retention * Dispo planning-Pending PT eval, pain mgmnt Time Spent With Patient Time: Total time managing care of this patient today ____ minutes. Quality Stroke Does the patient have a stroke diagnosis?: No VTE Prior VTE?: No VTE Risk Level:: Surgical - very high VTE Device Contraindication: N/A - Device Ordered VTE Drug Contraindication: N/A - Med Ordered
[2023-06-23] MEDS: Celecoxib 200 MG CAPSULE PO ×2 (07:56→20:29)
[2023-06-23] MEDS: oxyCODONE HCl ER 10 MG TAB.ER.12H PO ×2 (07:56→20:30)
[2023-06-23] MEDS: methocarbamoL 500 MG TABLET PO ×3 (07:56→20:31)
[2023-06-23] MEDS: Multivitamin TABLET 1 TAB PO (07:56)
[2023-06-23] MEDS: Tamsulosin HCL 0.4 MG CAPSULE 0.8 MG PO (07:57)
--- NOTE | 2023-06-23 09:22 | MHC.CM.PN ---
Male 48 s/p R TKA. He lives with his . He is independent with all functional mobility. A copy of his HCP has been requested. Patient preferences of VNA obtained. A referral has been sent to [facility] at pts request. DP Home with [facility]. Patient will transition to outpatient P.T.. Patients will provide transportation home. Anticipate dc later today or tomorrow.
--- NOTE | 2023-06-23 10:51 | HO.POSTANES ---
Post Anesthesia Evaluation Post Anesthesia Evaluation Date of Service: 06/22/23 Vital Signs: Vital Signs Temp Pulse Resp BP Pulse Ox O2 Del Method 06/23/23 06:55 98 F 79 16 145/85 H 96 Room Air 06/23/23 02:57 96.8 F 77 16 126/75 93 Room Air Anesthesia: Monitored and Spinal Mental Status: Awake Pain Control: Satisfactory Nausea/Vomiting: None Hydration: Adequate Anesthesia-Related Issues: No Anes. Related Issues
[2023-06-23] MEDS: 0.9 % Sodium Chloride Flush 3 ML SYRINGE IVFLUSH (13:54)
[2023-06-23] MEDS: oxyCODONE HCl Immed Release 5 MG TABLET 10 MG PO ×2 (13:54→20:29)
[2023-06-23 15:20] VITALS: BP 122/65; PULSE 91; RESP 18; TEMP 36.1; O2SAT 97
[2023-06-23 19:15] VITALS: BP 118/70; PULSE 80; RESP 18; TEMP 36; O2SAT 97
[2023-06-23] MEDS: Tamsulosin HCL 0.4 MG CAPSULE PO (20:29)
[2023-06-23] MEDS: Gabapentin 100 MG CAPSULE PO (20:29)
[2023-06-23] MEDS: Melatonin 3 MG TABLET 6 MG PO (20:30)
--- NOTE | 2023-06-23 20:43 | P.DS_ITS ---
DS: Providers Provider Date of Service: 06/24/23 Date of admission: 06/22/23 06:10 Primary care physician: Javi Villarreal PA-C Consults: 06/22/23 11:04 Consult to Hospitalist Routine Comment: Consulting Provider: Hospitalist Reason For Exam: Routine medical management DS: Diagnosis Discharge Diagnosis (1) Status post total right knee replacement: Status: Acute DS: Summary Hospital Course Hospital Course: The patient underwent a successful right total knee arthroplasty, they were transferred to PACU and then to the floor to recover. During their stay, their vitals were stable, afebrile at 98.0. Labs were unremarkable, H/H 9.9/28.9. POD 1 they were started on Aspirin 325mg po bid for DVT ppx, they also received Physical Therapy services twice a day. Prior to discharge, their dressing was clean dry and intact, and the plan was to be discharged home with [facility] services. Time Attestation Discharge Coordination Time (in mins): 30 Quality: Safe Use of Opioids Does Pt have an Active Cancer Diagnosis on the Problem List?: No Quality: Stroke Does the patient have a stroke diagnosis?: No Physical Exam Vital Signs: Vital Signs: Last Vital Signs Temp 96.8 F 06/23/23 19:15 Pulse 80 06/23/23 19:15 Resp 18 06/23/23 19:15 BP 118/70 06/23/23 19:15 Pulse Ox 97 06/23/23 19:15 O2 Del Method Room Air 06/23/23 19:15 O2 Flow Rate 6 06/22/23 10:30 BMI result Body Mass Index 30.8 Const: General: cooperative, healthy appearing and no acute distress Resp: Effort & Inspection: normal respiratory effort and able to speak in complete sentences Cardio: Rate: regular rate Peripheral pulses: Peripheral pulses 2+ throughout GI: Palpation (GI): Soft to palpation Skin: Lesions: no lesions Rashes: no rashes Extrem: Other: right knee dressing is c/d/i. Able to dorsi/plantar flex. Calf is supple and nontender. Sensation intact. Pedal pulse intact. DS: Data Data Completed and Pending Completed studies during hospitalization [Text1]: Pending at discharge 06/22/23 08:21 Surgical [PTH] Routine Labs on day of discharge: Laboratory Results - last 24 hr 06/23/23 05:15 WBC 11.7 H RBC 3.69 L Hgb 11.4 L Hct 33.5 L MCV 90.8 MCH 30.9 MCHC 34.0 RDW 13.6 Plt Count 120 L MPV 14.0 H Immature Gran % (Auto) 0.5 H Neut % (Auto) 73.4 H Lymph % (Auto) 15.1 L [place] % (Auto) 10.5 Eos % (Auto) 0.2 Baso % (Auto) 0.3 Lymph # (Auto) 1.8 [place] # (Auto) 1.2 Eos # (Auto) 0.0 Baso # (Auto) 0.0 Abs Immat Gran (auto) 0.06 H Absolute Neuts (auto) 8.6 H Absolute Nucleated RBC 0.000 Nucleated RBC % (auto) 0.0 Sodium 136 Potassium 3.8 Chloride 104 Carbon Dioxide 23 Anion Gap 13 BUN 11 Creatinine 0.80 Estim Creat Clear Calc 173.1 Estimated GFR > 60 Fasting Glucose 158 H Calcium 8.5 D Discharge Plan Discharge Anticipated Discharge Date/Time: 06/24/23 12:37 Patient Disposition: Home Health Service Discharge Diagnosis: s/p RTKA Referrals: Hellen Larry PA-C [Physician Reactor Technician] - 07/09/23 3:00 pm Discharge Medications: New methocarbamol 500 mg Tablet 500 mg PO TID 7 Days Qty: 21 0RF acetaminophen 325 mg Tablet 650 mg PO Q6H PRN (Reason: Pain, Mild (Pain Scale 1-3)) 30 Days Qty: 240 0RF tamsulosin 0.4 mg Capsule 0.4 mg PO BEDTIME 30 Days Qty: 30 0RF celecoxib 200 mg Capsule 200 mg PO BID 30 Days Qty: 60 0RF sennosides [Senna Lax] 8.6 mg Tablet 17.2 mg PO BEDTIME PRN (Reason: Constipation) 30 Days Qty: 60 0RF aspirin 325 mg Tablet 325 mg PO Q12H 42 Days Qty: 84 0RF gabapentin 100 mg Capsule 100 mg PO BEDTIME 30 Days Qty: 30 0RF oxycodone 5 mg Tablet 5 mg PO Q4H PRN (Reason: Pain, Moderate(Pain Scale 4-6)) 7 Days Qty: 42 0RF Rx Instructions: Partial Fill upon patient request. José Miguel (CANDICE) alfredo Gill See Rx Instructions .ROUTE .MEDSUPPLY Qty: 1 0RF Rx Instructions: Folding front wheeled walker multivitamin Tablet 1 tab PO DAILY (DME) hospital bed Kit See Rx Instructions .Route Qty: 1 0RF Rx Instructions: use daily Discontinued ibuprofen 200 mg Tablet 800 mg PO DAILY PRN (Reason: Pain) Discharge Orders: Discharge Order (Routine); Ordered 06/24/23 Ordered By: Hellen Larry Diet: Advance to usual diet Activity on Discharge: Use cane or walker Stand Alone Forms: Patient Portal Discharge page Print Language: Macedonian Care Plan Goals: restore fxn to right knee Health Concerns: none Plan of Treatment: Physical Therapy for ROM 0-120, quad strength, gait training. Use walker for ambulation Limit stair climbing, No shower, No tub bath, No driving Continue anticoagulant x 6 weeks Keep Aquacel dressing clean, dry and intact. Follow up with orthopedics in 2 weeks Assessment: stable for d/c
--- NOTE | 2023-06-23 20:44 | W.MHC.F2F ---
Service Date Service Date: 06/23/23 Encounter Date of encounter: 06/24/23 Reasons for Services Signs and symptoms assessed: s/p RTKA Pt. is considered homebound due to recent surgery. Unable to drive, poor balance, poor gait mechanics. Reason for physical therapy: home safety and mobility, therapeutic exercises, restore joint function, gait/transfer training, assess need for DME and ADL training Homebound: Leaving the home is medically contraindicated at this time without the asist of a device and/or another person due th the listed conditions above and below. Reason homebound: unsteady gait / fall risk, leg weakness, pain with ambulation, pain with transfers, poor balance / fall risk and unable to drive Certification: Based on the above findings, I certify that this patient is confined to the home and needs intermittent penitentiary care, physical therapy and/or speech therapy, or continues to need occupational therapy. The patient is under my care, and I have initiated the establishment of the plan of care. The patient will be followed by a physician who will periodically review the plan of care. Time Spent With Patient Time: Total time managing care of this patient today ____ minutes.
[2023-06-24 03:53] VITALS: BP 103/64; PULSE 104; RESP 18; TEMP 36; O2SAT 93
[2023-06-24] MEDS: oxyCODONE HCl Immed Release 5 MG TABLET 10 MG PO ×2 (05:25→15:16)
[2023-06-24] MEDS: Aspirin 325 MG TABLET PO (05:26)
[2023-06-24 05:49] LABS: MANUAL DIFF FLAG NO
[2023-06-24 05:57] LABS: Basophils Percent Auto 0.4 % (0-2); Eosinophils Absolute Auto 0.1 X10*3/uL (0.0-0.4); Eosinophils Percent Auto 0.8 % (0-4); Hematocrit 28.9 % (42.0-52.0); Hemoglobin 9.9 g/dl (14.0-18.0); Imm Gran Abs Auto 0.04 X10*3/uL (0.00-0.03); Imm Gran Pct Auto 0.6 % (0.0-0.4); Lymphocytes Absolute Auto 1.5 X10*3/uL (1.2-4.9); Lymphocytes Percent Auto 20.8 % (20-40); Mean Corpuscular HGB Conc 34.3 g/dl (31.0-36.0); Mean Corpuscular Hemoglobin 31.8 pg (27.0-33.0); Mean Corpuscular Volume 92.9 fL (80.0-98.0); Mean Platelet Volume 13.7 fL (9.4-12.4); Monocytes Absolute Auto 0.9 X10*3/uL (0.1-1.2); Monocytes Percent Auto 12.5 % (2-11); Neutrophils Absolute Auto 4.6 x10*3/uL (2.0-8.3); Neutrophils Percent Auto 64.9 % (45-73); Red Blood Count 3.11 X10*6/uL (4.60-5.80); Red Cell Distribution Width 13.6 % (11.0-16.0); White Blood Count 7.1 X10*3/uL (4.8-10.8)
[2023-06-24 05:58] LABS: Platelet Count 83 X10*3/uL (160-400)
[2023-06-24 06:11] LABS: Anion Gap 12 (12-20); Blood Urea Nitrogen 7 mg/dL (9-16); Calcium 8.6 mg/dL (8.4-10.2); Carbon Dioxide 25 mmol/L (22-29); Chloride 104 mmol/L (96-108); Creatinine Clr Calc Pharmacy 182.2; Estimated Glomerular Filt Rate > 60; Glucose Fasting 134 mg/dL (60-99); Potassium 4.1 mmol/L (3.3-5.1); Sodium 137 mmol/L (135-145)
[2023-06-24 06:46] VITALS: BP 123/70; PULSE 90; RESP 16; TEMP 36.6; O2SAT 92
[2023-06-24 06:47] VITALS: BP 123/70; PULSE 93; RESP 16; TEMP 36.6; O2SAT 91
[2023-06-24 08:12] VITALS: BP 123/70; PULSE 93; O2SAT 91
--- NOTE | 2023-06-24 08:31 | MHC.CM.PN ---
Addendum entered by Mariposa Reeder 06/24/23 08:36: [facility] NOTIFIED OF TODAY'S DC. Original Note: DP: PT HAS BEEN MEDICALLY CLEARED FOR DC HOME WITH NEW [facility] FOR P.T. SERVICES. [facility] WILL TRANSPORT
[2023-06-24] MEDS: methocarbamoL 500 MG TABLET PO ×2 (09:31→14:31)
[2023-06-24] MEDS: 0.9 % Sodium Chloride Flush 3 ML SYRINGE IVFLUSH (09:31)
[2023-06-24] MEDS: Celecoxib 200 MG CAPSULE PO (09:31)
[2023-06-24] MEDS: oxyCODONE HCl ER 10 MG TAB.ER.12H PO (09:31)
[2023-06-24] MEDS: Multivitamin TABLET 1 TAB PO (09:31)
[2023-06-24 10:11] VITALS: O2SAT 95
== END 2023-06-24 15:48 | disposition home health service (06) | DRG 326 ==
LOC: HO.SSSA 06:21 → HO.S3 10:27
PROVIDERS: Nurse Practitioner; Orthopaedic Surgery; Admitting Provider Physician Assistant; PCP Physician Assistant; Visit Provider Physician Assistant
PROC: 0SRC0J9 Replacement of Right Knee Joint with Synthetic Substitute, Cemented, Open Approach (ICD-10-PCS; CPT 27447; principal; 2023-06-22 07:30)
DX: M17.11 Unilateral primary osteoarthritis, right knee (principal); I95.9 Hypotension, unspecified; G89.18 Other acute postprocedural pain; Z79.899 Other long term (current) drug therapy
CPT/HCPCS: 27447; 36415; 80048; 82947; 85025; 85027; 85610; 85730; 86850; 86900; 86901; 87640; 87641; 88305; 88311; 93005; 97110; 97116; 97161; 97530; C1776; J0131; J0171; J0665; J0690; J1100; J2250; J2405; J2704; J3010; J3370; J7120

== ENCOUNTER → 2023-06-22 06:10 | Outpatient (BNV) | payer BC, SELFPAY | PROVIDERS: Admitting Provider Physician Assistant; PCP Physician Assistant; Visit Provider Nurse Practitioner Acute Care | DX: Z96.641 Presence of right artificial hip joint (principal); I10 Essential (primary) hypertension | CPT/HCPCS: 99221 ==

== ENCOUNTER → 2023-06-22 06:10 | Outpatient (BNV) | payer BC, SELFPAY | PROVIDERS: Admitting Provider Physician Assistant; PCP Physician Assistant; Visit Provider Orthopaedic Surgery | DX: Z47.1 Aftercare following joint replacement surgery (principal); Z96.651 Presence of right artificial knee joint | CPT/HCPCS: 27447; 99024; G0180 ==

== ENCOUNTER 2023-07-09 07:38 | Outpatient (REF) | payer BC, SELFPAY | END 2023-07-09 07:39 | disposition home or self-care (01) | LOC: HO.HOSX 07:38 | PROVIDERS: Visit Provider Physician Assistant | DX: Z13.89 Encounter for screening for other disorder (principal) ==

== ENCOUNTER 2023-07-16 09:47 | Outpatient (AMB) | payer BC, SELFPAY ==
--- NOTE | 2023-07-16 09:50 | MHC.OFFVIS ---
Vital Signs 07/16/23 10:28 Height 6 ft 8 in Weight 275 lb BMI 30.2 Intake Visit Reasons: post-op RT TKA 06/22/23 Intake Note: Josue is a 48 year old male who presents for his post operative appointment s/p Right TKA on 06/22/2023 Patient reports he is doing well and he has been doing Physical therapy but feels a little behind due to his recent abdominal surgery. He was hospitalized with gallstones on 07/06/2023 for a week and had his gallbladder removed on 07/14/2023. He denies any fevers or chills. Allergies No Known Allergies Allergy (Verified 07/16/23 10:26) Medication List - Last Reconciled 07/17/23 by Alex Jiménez MD acetaminophen 650 mg (2 x 325 mg) PO Q6H PRN 30 days aspirin 325 mg PO Q12H 42 days celecoxib 200 mg PO BID 30 days gabapentin 100 mg PO BEDTIME 30 days hospital bed use daily methocarbamol 500 mg PO TID 7 days multivitamin 1 tab PO DAILY oxycodone 5 mg PO Q4H PRN 7 days sennosides (Senna Lax) 17.2 mg (2 x 8.6 mg) PO BEDTIME PRN 30 days tamsulosin 0.4 mg PO BEDTIME 30 days walker Folding front wheeled walker [facility] Medical History Back pain History of herniated intervertebral disc Anxiety Asthma Arthritis Surgical History Hx of tonsillectomy S/P left knee arthroscopy History of exploratory laparotomy Social History Household Members: Spouse and Family Housing: House Are you a primary daycare assistant to a significant other at home: No Do you presently have visiting nurse or other home services: No Alcohol intake: current Alcohol intake frequency: a few times a week Alcohol type: beer Patient Tobacco Use Status: Never used Tobacco e-Cigarette/Vaping Use: Never Used Second Hand Smoke Exposure: No service: No Current occupational status: employed 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 Cognitive needs: No Hearing needs: No Vision needs: Yes (glasses) Physical Exam Vital Signs: BMI result Body Mass Index 30.2 Const Other: Well-nourished well-developed very friendly male awake alert and oriented x3 in no acute distress Extrem Other: Right knee examination shows that the surgical incision is healing well, no erythema, range of motion from -3 degrees to 115 degrees, his patella tracks well Results Reviewed Results Reviewed: X-rays of the patient's right knee show a total knee arthroplasty in good position with no signs of loosening, no acute bony abnormalities Assessment & Plan Assessment & Plan (1) Status post total right knee replacement: Code(s): Z96.651 - Presence of right artificial knee joint Category: Surgical Plan Mr. Garrett is doing well after undergoing right total knee replacement surgery on 06/22/2023. His yunier were removed and Steri-Strips placed over his incision. Will continue with his physical therapy exercises. He will contact me prior to his follow-up appointment in 6 weeks should any questions or concerns arise. Feel free to call me at any time should questions regarding his orthopedic management arise. Orders: Orders PT Evaluation and Treatment 07/16/23 Alex Jiménez MD Z96.651 - Presence of right artificial knee joint XR knee RT 3V 07/09/23 Hellen Larry PA-C M25.569 - Pain in unspecified knee XR knee RT 3V 07/16/23 Alex Jiméenz MD M25.561 - Pain in right knee Medications: New amoxicillin Take four caps (2,000 mg) one hour before any dental work due to your total knee arthroplasty. 2,000 mg (4 x 500 mg) PO ONCE 20 caps 0RF Alex Jiménez MD Coding Level of Care Code Global (94967) Diagnoses Status post total right knee replacement Z96.651
[2023-07-16 10:28] VITALS: BMI 30.2
== END 2023-07-16 10:59 | disposition home or self-care (01) ==
PROVIDERS: PCP Physician Assistant; Visit Provider Orthopaedic Surgery
DX: Z96.651 Presence of right artificial knee joint (principal)
CPT/HCPCS: 99024

== ENCOUNTER 2023-07-16 10:13 | Outpatient (REF) | payer BC, SELFPAY ==
--- NOTE | ~2023-07-16 | XR_ITS ---
EXAMINATION: XR KNEE, RIGHT CLINICAL INFORMATION: Right knee pain. COMPARISON: 01/29/2023 TECHNIQUE: Three views of the right knee. FINDINGS: Prosthetic components of the total knee arthroplasty are appropriately aligned. No periprosthetic fracture. Soft tissues are swollen. A joint effusion is present. Skin yunier are present anteriorly. XR/XR knee RT 3V IMPRESSION: Appropriate alignment of the right total knee arthroplasty.
== END 2023-07-16 10:14 | disposition home or self-care (01) ==
LOC: HO.HOSX 10:13
PROVIDERS: Visit Provider Orthopaedic Surgery
DX: M25.561 Pain in right knee (principal)
CPT/HCPCS: 73562

== ENCOUNTER 2023-07-30 13:00 | Outpatient (AMB) | payer BC, SELFPAY ==
--- NOTE | 2023-07-30 13:02 | MHC.OFFVIS ---
Intake Visit Reasons: 6 week post-op RT TKA 06/22/23 Intake Note: Josue is a 48 year old male who presents to the office today for routine follow-up after undergoing right total knee replacement surgery on 06/22/2023. The patient reports mild to moderate discomfort in his right knee. He denies any fevers or chills. He continues to go to formal physical therapy. The patient does have difficulty sleeping because of his discomfort. He is no longer taking narcotics. Allergies No Known Allergies Allergy (Verified 07/30/23 13:03) Medication List - Last Reconciled 07/30/23 by Alex Jiménez MD acetaminophen 650 mg (2 x 325 mg) PO Q6H PRN 30 days amoxicillin 2,000 mg (4 x 500 mg) PO ONCE aspirin 325 mg PO Q12H 42 days hospital bed use daily multivitamin 1 tab PO DAILY sennosides (Senna Lax) 17.2 mg (2 x 8.6 mg) PO BEDTIME PRN 30 days walker Folding front wheeled walker ON LICENSE OF [facility] Medical History Back pain History of herniated intervertebral disc Anxiety Asthma Arthritis Surgical History Hx of tonsillectomy S/P left knee arthroscopy History of exploratory laparotomy Social History Household Members: Spouse and Family Housing: House Are you a primary healthcare management to a significant other at home: No Do you presently have visiting nurse or other home services: No Alcohol intake: current Alcohol intake frequency: a few times a week Alcohol type: beer Patient Tobacco Use Status: Never used Tobacco e-Cigarette/Vaping Use: Never Used Second Hand Smoke Exposure: No service: No Current occupational status: employed 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 Garrett continues to do well after undergoing right total knee replacement surgery on 06/22/2023. He will continue going to formal physical therapy for now. He will gradually transition to a home exercise program. He will contact me prior to his follow-up appointment in 4 weeks should any questions or concerns arise. Feel free to call me at any time should questions regarding his orthopedic management arise. Coding Level of Care Code Global (68383) Diagnoses Right knee pain M25.561
== END 2023-07-30 13:20 | disposition home or self-care (01) ==
PROVIDERS: PCP Physician Assistant; Visit Provider Orthopaedic Surgery
DX: M25.561 Pain in right knee (principal)
CPT/HCPCS: 99024

== ENCOUNTER → 2023-07-30 13:00 | Outpatient (BNVA) | payer BC, SELFPAY | PROVIDERS: PCP Physician Assistant; Visit Provider Orthopaedic Surgery ==

== ENCOUNTER 2023-08-26 10:00 | Outpatient (RCR) | payer BC, SELFPAY ==
--- NOTE | 2023-07-22 09:06 | MHC.PT.EP ---
[facility] [place] Office [place] Office [place] Office [address] Rukhsana Hanks [address] [phone] F: [phone] F: [phone] F: [phone] F: [phone] Physical Therapy Plan of Care Date of Evaluation: 07/22/23 Date of Surgery: 06/22/2023 Diagnosis: s/p R TKA Assessment: Patient is a 48 year old male presenting to PT s/p R TKA 06/22/2023. He presents today with impairments in pain, ROM, knee strength, gait mechanics, hip strength. 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 Pt expresses fpc goal of returning to PLOF, and is motivated to work towards this in PT. Clinical presentation today is most consistent with signs and sx associated with R TKA 06/22/2023 and pt will benefit from skilled PT 2 week x 5 weeks to address the following problems and impairments noted upon evaluation: pain, ROM, knee strength, gait mechanics, hip strength. These problems limit the patient with the following functional activities: work, ADLs, ambulating, stair negotiation, hiking. The prescribed treatment plan of care is medically necessary. Co-morbidities of recent gallbladder removal were identified and taken into considerations of plan of care. Pt was educated on HEP, role of PT, prognosis, POC. Frequency and Duration: The patient will be seen 2 x week x 4 weeks Short Term Goals: Pt will demonstrate symmetrical ROM in 2 weeks. Pt will demonstrate 5/5 R knee MMT strength in 2 weeks. Pt will demonstrate hip MMT strength at lest 4/5 in 2 weeks for improved lumbopelvic stability. Residential Goals: Pt will demonstrate improved LEFI score by 9 points in 4 weeks for improved functional mobility. Pt will demonstrate ability to ambulate with normal mechanics in 4 weeks for return to PLOF. Pt will demonstrate ability to negotiate stairs with step over step pattern in 4 weeks. Treatment Plan: Modalities to reduce pain, spasms and effusion. Manual therapy to restore motion and function. Therapeutic exercise to improve strength and flexibility. Neuromuscular re-education for posture and balance. Therapeutic activities to return to functional activities of daily living. Electronically signed by: Amada House, PT, DPT, ATC Please sign and return to therapist. Thank you for your referral.
--- NOTE | 2023-09-23 07:35 | MHC.PT.DC ---
[facility] [place] Office [place] Office [place] Office [address] [phone] F: [phone] F: [phone] F: [phone] F: [phone] Physical Therapy Discharge Report Diagnosis: s/p R TKA Date of Surgery: 06/22/2023 Date of Evaluation: 07/22/23 Date of Discharge: 09/23/23 Treatments to Date: 12 Cancellations to Date: No Shows to Date: Discharge Status: Improved Function Independent with HEP Discharge Summary: Pt was placed on 30 day hold last visit while he transitioned to HEP. Pt has not called to be scheduled and therefore to be d/c. Electronically signed by: Amada House, PT, DPT, ATC Please sign and return to therapist. Thank you for your referral.
== END 2023-09-23 07:36 | disposition home or self-care (01) ==
LOC: HO.PTCHIC 10:00
PROVIDERS: PCP Physician Assistant; Visit Provider Physician Assistant
DX: Z96.651 Presence of right artificial knee joint (principal)
CPT/HCPCS: 97110; 97112; 97140; 97161

== ENCOUNTER 2023-09-08 13:48 | Outpatient (AMB) | payer BC, SELFPAY ==
--- NOTE | 2023-09-08 13:49 | A.OFFVIS_ITS ---
Intake Visit Reasons: right TKA Intake Note: Josue is a 48 year old male who presents with complaints of mild intermittent discomfort in his right knee after undergoing right total knee replacement surgery on 06/22/2023. He continues with his home stretching program. He denies any fevers or chills. He is due to return to work next week. Allergies No Known Allergies Allergy (Verified 09/08/23 13:49) Medication List - Last Reconciled 09/08/23 by Alex Jiménez MD acetaminophen 650 mg (2 x 325 mg) PO Q6H PRN 30 days amoxicillin 2,000 mg (4 x 500 mg) PO ONCE aspirin 325 mg PO Q12H 42 days hospital bed use daily multivitamin 1 tab PO DAILY sennosides (Senna Lax) 17.2 mg (2 x 8.6 mg) PO BEDTIME PRN 30 days walker Folding front wheeled walker [facility] Medical History Back pain History of herniated intervertebral disc Anxiety Asthma Arthritis Surgical History Hx of tonsillectomy S/P left knee arthroscopy History of exploratory laparotomy Social History Household Members: Spouse and Family Housing: House Are you a primary lawn care specialist to a significant other at home: No Do you presently have visiting nurse or other home services: No Alcohol intake: current Alcohol intake frequency: a few times a week Alcohol type: beer Patient Tobacco Use Status: Never used Tobacco e-Cigarette/Vaping Use: Never Used Second Hand Smoke Exposure: No service: No Current occupational status: employed 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 Garrett continues to do very well after undergoing right total knee replacement surgery on 06/22/2023. He will continue with his home exercise program. He does know to take antibiotics before any dental work. He will contact me prior to his follow-up appointment in 3 months should any questions or concerns arise. Feel free to call me at any time should questions regarding his orthopedic management arise. Coding Level of Care Code Global (49562) Diagnoses Right knee pain M25.561
== END 2023-09-08 14:09 | disposition home or self-care (01) ==
PROVIDERS: PCP Physician Assistant; Visit Provider Orthopaedic Surgery
DX: M25.561 Pain in right knee (principal)
CPT/HCPCS: 99024

== ENCOUNTER → 2023-09-08 13:48 | Outpatient (BNVA) | payer BC, SELFPAY | PROVIDERS: PCP Physician Assistant; Visit Provider Orthopaedic Surgery ==

== ENCOUNTER 2023-11-11 14:43 | Outpatient (AMB) | payer BC, SELFPAY ==
--- NOTE | 2023-11-11 14:45 | MHC.OFFVIS ---
Vital Signs 11/11/23 14:48 Height 6 ft 8 in Weight 275 lb BMI 30.2 Intake Visit Reasons: OV - RT TKA 06/22/23 Intake Note: Josue is a 48 year old male who presents with complaints of minimal discomfort in his right knee after undergoing right total knee replacement surgery on 06/22/2023. He continues with his home exercise program. He does not take any medicines for his discomfort. The patient does have intermittent pain in his left knee. He wishes to hold off on left total knee replacement surgery for as long as possible. Allergies No Known Allergies Allergy (Verified 09/08/23 13:49) Medication List - Last Reconciled 11/12/23 by Alex Jiménez MD acetaminophen 650 mg (2 x 325 mg) PO Q6H PRN 30 days amoxicillin 2,000 mg (4 x 500 mg) PO ONCE aspirin 325 mg PO Q12H 42 days hospital bed use daily multivitamin 1 tab PO DAILY sennosides (Senna Lax) 17.2 mg (2 x 8.6 mg) PO BEDTIME PRN 30 days walker Folding front wheeled walker [facility] Medical History Back pain History of herniated intervertebral disc Anxiety Asthma Arthritis Surgical History Hx of tonsillectomy S/P left knee arthroscopy History of exploratory laparotomy Social History Household Members: Spouse and Family Housing: House Are you a primary assisted living care manager to a significant other at home: No Do you presently have visiting nurse or other home services: No Alcohol intake: current Alcohol intake frequency: a few times a week Alcohol type: beer Patient Tobacco Use Status: Never used Tobacco e-Cigarette/Vaping Use: Never Used Second Hand Smoke Exposure: No service: No Current occupational status: employed 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 Cognitive needs: No Hearing needs: No Vision needs: Yes (glasses) Physical Exam Vital Signs: BMI result Body Mass Index 30.2 Const Other: Well-nourished well-developed very friendly male awake alert and oriented x3 in no acute distress Extrem Other: Bilateral lower extremity examination shows good capillary refill, no skin lesions noted, normal sensation light touch Right knee examination shows that the surgical incision is well healed, no erythema, full active extension and flexion to 120 degrees, his patella tracks well Assessment & Plan Assessment & Plan (1) Right knee pain: Code(s): M25.561 - Pain in right knee Category: Medical Plan Mr. Garrett continues to do very well after undergoing right total knee replacement surgery on 06/22/2023. He will continue with his home exercise program. Does know to take antibiotics before any dental work. He will contact me prior to his annual follow-up appointment should any questions or concerns arise. Feel free to call me at any time should questions regarding his orthopedic management arise. I spent 22 minutes in reviewing the patient's records and imaging studies, seeing the patient and documenting in the medical record. Coding Level of Care Code Est Pt Level 3 (50432) Complex EM visit Add On G2211 Diagnoses Right knee pain M25.561
[2023-11-11 14:48] VITALS: BMI 30.2
== END 2023-11-11 15:20 | disposition home or self-care (01) ==
PROVIDERS: PCP Physician Assistant; Referring Provider Physician Assistant; Visit Provider Orthopaedic Surgery
DX: Z47.1 Aftercare following joint replacement surgery (principal); Z96.651 Presence of right artificial knee joint; M25.561 Pain in right knee
CPT/HCPCS: 99213

== ENCOUNTER → 2023-11-11 14:43 | Outpatient (BNVA) | payer BC, SELFPAY | PROVIDERS: PCP Physician Assistant; Visit Provider Orthopaedic Surgery ==

== ENCOUNTER 2024-02-16 09:57 | Outpatient (AMB) | payer BC, SELFPAY ==
[2024-02-16 10:12] VITALS: BP 110/80; PULSE 60; TEMP 36.8; O2SAT 100
--- NOTE | 2024-02-16 10:12 | MHC.OFFWIV ---
Intake Vital Signs 02/16/24 10:12 Weight 272 lb BP 110/80 Blood Pressure Location Rt brachial Position Sitting Pulse 60 Pulse Source Pulse Oximeter Temp 98.2 F Temp Source Oral Pulse Oximetry (%) 100 Oxygen Delivery Method Room Air Intake Visit Reasons: EP ? sinus infection Intake Note: Patient here for sinus pressure, dry nose, dry cough that has been present for about 2 weeks. Patient Tobacco Use Status: Never used Tobacco Allergies No Known Allergies Allergy (Verified 02/16/24 10:12) Do you need a note to return to daycare/school/sports/work: No HPI HPI Comments History of Present Illness Details This is a 48-year-old male with no stated past medical history presenting for evaluation of sinus pressure, dry cough and nasal discharge that he has had for the past 3 weeks. He denies having any fevers, chills, ear pain or sore throat. Patient has not taken any medication for treatment of his discomfort. 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 [facility] Medical History Back pain History of herniated intervertebral disc Anxiety Asthma Arthritis Surgical History Hx of tonsillectomy S/P left knee arthroscopy History of exploratory laparotomy Social History Household Members: Spouse and Family Housing: House Are you a primary hourly caregiver to a significant other at home: No Do you presently have visiting nurse or other home services: No Alcohol intake: current Alcohol intake frequency: a few times a week Alcohol type: beer Patient Tobacco Use Status: Never used Tobacco e-Cigarette/Vaping Use: Never Used Second Hand Smoke Exposure: No service: No Current occupational status: employed 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 Cognitive needs: No Hearing needs: No Vision needs: Yes (glasses) Review of Systems Const All systems reviewed & are unremarkable except as noted in HPI and below Reports as per HPI and Reports no additional complaints Eyes Reports as per HPI and Reports no additional complaints ENT Reports no additional complaints, Denies otalgia, Reports nasal discharge, Reports sinus pressure and Denies sore throat Card Reports as per HPI, Reports no additional complaints and Denies chest pain Resp Reports as per HPI, Reports no additional complaints and Reports cough GI Reports as per HPI Reports no additional complaints Skin/Breast Reports system reviewed and no additional complaints, except as documented Neuro Reports no additional complaints Psych Reports no additional complaints Aller/Immun Reports no additional complaints Physical Exam Const General: cooperative, healthy appearing, comfortable, no acute distress, well developed, alert and Physically active Nutritional Appearance: average body habitus Orientation/consciousness: patient oriented x3 Limitations: no limitations HEENT Head: Yes normal to inspection and Yes normocephalic Ears: hearing grossly normal bilaterally, external ears normal, TM normal on the right, left TM abnormal (TM bulging without erythema) and EAC's normal General nose exam: Normal external nose present Face and sinus: Yes normal facial exam and Yes sinuses nontender Mouth: Normal oral and palatal mucosa present and moist mucous membranes Throat: Yes posterior oropharynx normal and No postnasal drainage Eyes General: appearance normal, both eyes and all related structures Visual Boston: normal visual boston by confrontation Alignment and Position: alignment normal Periorbital: periorbital findings normal Eyelids: Yes eyelids normal Conjunctivae: conjunctivae normal Corneas: corneas normal Pupils: Equal, round and reactive pupils present EOM: EOMs intact bilaterally Neck Lymphatic: no lymphadenopathy noted Resp Effort & Inspection: normal respiratory effort, able to speak in complete sentences, abnormal respiratory pattern, no audible wheezes, no cough and no respiratory distress Auscultation: clear to auscultation bilaterally Cardio Rate: regular rate Rhythm: regular rhythm Skin General skin exam: no rashes or lesions noted Neuro General: patient oriented x3 Cranial nerves: Yes Equal, round and reactive pupils present Psych Appearance: grossly normal Mental Status: mental status grossly normal Thought content: Normal thought content present Insight: Good insight present (Psych) Judgement: Good judgement present (Psych) Assessment & Plan Assessment & Plan (1) Upper respiratory infection: Comment: Patient declines testing for influenza at this time. Patient is in no acute distress and is afebrile. Code(s): J06.9 - Acute upper respiratory infection, unspecified Qualifiers: URI type: unspecified URI Qualified Code(s): J06.9 - Acute upper respiratory infection, unspecified Plan: Increase clear fluids daily, ibuprofen or Tylenol as needed for discomfort, follow up with PCP if symptoms persist another 10 days, sooner for any worsening symptoms. Coding Level of Care Code Est Pt Level 3 (88378) Diagnoses Upper respiratory tract infection, unspecified type J06.9 URI type: unspecified URI Time Spent (min) 20
== END 2024-02-16 10:40 | disposition home or self-care (01) ==
PROVIDERS: PCP Physician Assistant; Visit Provider Physician Assistant
DX: J06.9 Acute upper respiratory infection, unspecified (principal)

== ENCOUNTER 2024-05-25 15:15 | Outpatient (AMB) | payer BC, SELFPAY ==
--- NOTE | 2024-05-25 15:17 | MHC.PC.OV ---
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 Required: No Accompanied by: Self / Same As Patient Allergies No Known Allergies Allergy (Verified 05/25/24 15:28) Medication List - Last Reconciled 05/25/24 by Javi Villarreal PA-C acetaminophen 650 mg (2 x 325 mg) PO Q6H PRN 30 days walker Folding front wheeled walker Tobacco use date assessed: 05/25/24 Dental Screening Dental Screen Date: 05/25/24 Did you have a dental visit in the last 12 months?: Yes Did you have a dental problem in the last 6 months where you did not have access to dental care?: No Was dental information given to patient?: Patient has dentist HPI PE - see comments HPI Details Patient is a 49 year here today for routine annual physical. Has a past medical history significant bilateral knee pain and instability. Has had knee replacement in 2023 .. 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 Management has included tilb-qeg-ukdeged antihistamines and hydration, with historical use of antibiotics Vaccines: Up-to-date with COVID vaccine, tetanus vaccine, declines flu vaccine Colon cancer screening: Considering colonoscopy. [facility] Medical History (Updated 05/25/24 @ 16:45 by Javi Villarreal PA-C) Back pain History of herniated intervertebral disc Anxiety Asthma Arthritis Surgical History (Updated 05/25/24 @ 15:35 by Javi Villarreal PA-C) History of appendectomy S/P total right hip arthroplasty Hx of tonsillectomy S/P left knee arthroscopy History of exploratory laparotomy Family History (Updated 05/25/24 @ 15:34 by Javi Villarreal PA-C) Mother Lung cancer Sister Rheumatoid arthritis Social History Household Members: Spouse and Family Housing: House Are you a primary nursing care attendant to a significant other at home: No Do you presently have visiting nurse or other home services: No Alcohol intake: current Alcohol intake frequency: a few times a week Alcohol type: beer Patient Tobacco Use Status: Never used Tobacco e-Cigarette/Vaping Use: Never Used Second Hand Smoke Exposure: No service: No Current occupational status: employed 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 1. Little interest or pleasure in doing things: not at all 2. Feeling down, depressed, or hopeless: not at all 3. Trouble falling or staying asleep, or sleeping too much: not at all 4. Feeling tired or having little energy: not at all 5. Poor appetite or overeating: not at all 6. Feeling bad about yourself - or that you are a failure or have let yourself or your family down: not at all 7. Trouble concentrating on things, such as reading the newspaper or watching television: not at all 8. Moving or speaking so slowly that other people could have noticed. Or the opposite - being so fidgety or restless that you have been moving around a lot more than usual: not at all 9. Thoughts that you would be better off or of hurting yourself in some way: not at all Total score: 0 Depression Screening Interpretation: Negative Depression Screening Done: Yes 43855 - PHQ-9 Billing: Yes Source: Developed by Drs. Savage Ramsey, Salma Morin, Justin Torres and colleagues, with an educational mariano from [employer]. Thrive Questionnaire Date Thrive assessed: 05/25/24 I am a: Patient What is your living situation today?: I have a steady place to live Within the past 12 months, did the food you bought not last and you didn't have the money to get more?: Never true Within the past 12 months, did you worry whether your food would run out before you got money to buy more?: Never true Do you have trouble paying for medicines?: No Do you have trouble getting transportation to medical appointments?: No Do you have trouble paying your heating and electricity bill?: No Do you have trouble taking care of your child, family member or friend?: No Do you have trouble with day-to-day activities such as bathing, preparing meals, shopping, managing finances, etc.?: No Are you currently unemployed and looking for a job?: No Are you interested in more education?: No Please select the resources that you would like help with: None Currently or been in a relationship where the following occur: No concerns reported THRIVE Score: 0 AUDIT C Alcohol Use Questionnaire (AUDIT-C) 1. How often do you have a drink containing alcohol?: 2-3 times a week 2. How many drinks containing alcohol do you have on a typical day when you are drinking?: 5 or 6 3. How often do you have six or more drinks on one occasion?: Never Total Score: 5 JOAQUIN-7 AMB Questionnaire JOAQUIN-7 Date JOAQUIN - 7 assessed: 05/25/24 Feeling nervous, anxious, or on edge: 0 = Not at all Not being able to stop or control worryin = Not at all Worrying too much about different things: 0 = Not at all Trouble relaxin = Not at all Being so restless that it is hard to sit still: 0 = Not at all Becoming easily annoyed or irritable: 0 = Not at all Feeling afraid as if something awful might happen: 0 = Not at all Total JOAQUIN-7 score (0-4 normal; 5-9 mild; 10-14 moderate; 15-21 severe): 0 Source: Developed by Drs. Savage Ramsey, Salma Morin, Justin Torres and colleagues, with an educational mariano from [employer]. JOAQUIN-7 Assessment Billing JOAQUIN-7 Assessment Tool: JOAQUIN-7 Assessment 53010 Review of Systems Const Denies body aches, Denies chills, Denies excessive sweating, Denies fatigue, Denies fever(s) and Denies headache(s) Eyes Denies blurry vision ENT Denies dysphagia, Denies vertigo, Denies dizziness, Denies headache(s), Denies hearing loss and Denies tinnitus Card Denies chest pain, Denies chest pain with activity, Denies syncope, Denies irregular heart rhythm and Denies dyspnea Resp Denies chest congestion, Denies cough, Denies hemoptysis, Denies dyspnea and Denies wheezing GI Denies abdominal pain, Denies melena, Denies hematochezia, Denies coffee ground emesis, Denies dysphagia, Denies diarrhea, Denies nausea and Denies vomiting Denies difficulty urinating, Denies dysuria, Denies urinary frequency, Denies urinary hesitancy and Denies urinary urgency Musc Denies arthralgias, Denies limited range of motion, Denies muscle cramps and Denies muscle weakness Skin/Breast Denies rash and Denies skin ulcer Neuro Denies Abnormal speech present, Denies confusion, Denies vertigo, Denies dizziness, Denies syncope, Denies headache(s), Denies memory loss and Denies seizure-like activity Psych Denies anxiety, Denies confusion, Denies depression, Denies memory loss, Denies panic attacks and Denies paranoia Endo Denies excessive sweating, Denies fatigue, Denies flushing, Denies polydipsia and Denies polyuria Aller/Immun Denies wheezing Physical exam (Primary Care) Vital Signs: Last Vital Signs Temp 97.1 F 05/25/24 15:22 Pulse 80 05/25/24 15:22 BP 108/68 05/25/24 15:22 Pulse Ox 95 05/25/24 15:22 Oxygen Delivery Method Room Air 05/25/24 15:22 BMI result Body Mass Index 30.9 BMI Assessment/Plan discussion: High BMI High, discussed plan: lifestyle, weight reduction, dietary and physical activity Tobacco/Smoking Status: Tobacco use Status Tobacco use date assessed 05/25/24 05/25/24 15:18 Patient Tobacco Use Status Never used Tobacco 05/25/24 15:18 e-Cigarette/Vaping Use Never Used 05/25/24 15:18 PHQ-9: PHQ-9 Score PHQ-9: Total score 0 05/25/24 15:29 Depression Screening Interpretation: Negative Thrive Assessment: Date of Thrive Assessment Date Thrive assessed 05/25/24 05/25/24 15:18 Currently or been in a relationship where the following occur: No concerns reported Const General: cooperative, comfortable, no acute distress, alert and awake; No confusion Orientation/consciousness: oriented to person, oriented to place, patient oriented x3 and No confusion HENMT Head: Yes normocephalic Ears: external ears normal and TM's normal bilaterally Face and sinus: No sinus tenderness Mouth: Normal oral and palatal mucosa present and tongue normal Teeth and gingiva: dentition normal and gingiva normal Throat: Yes posterior oropharynx normal, Yes tonsils normal and Yes uvula midline Eyes Conjunctivae: conjunctivae normal Sclerae: sclerae normal Pupils: Equal, round and reactive pupils present EOM: EOMs intact bilaterally Direct Ophthalmoscopy: No no photophobia Neck Neck: Yes no lymphadenopathy, No tender and Yes no JVD Thyroid: Thyroid normal Carotids: no bruits Chest Chest palpation & inspection: no tenderness Resp Effort & Inspection: normal respiratory effort, no audible wheezes, not labored and no stridor Auscultation: no crackles, no rales, no rhonchi and no wheezes Cardio Jugular venous distension: no JVD Rate: regular rate, not bradycardic and not tachycardic Rhythm: regular rhythm Bruits: no carotid bruits Peripheral pulses: Peripheral pulses 2+ throughout GI Inspection: Yes normal to inspection, No abdominal wall ecchymosis and No visible herniation Palpation (GI): Soft to palpation, nontender, no guarding, not rigid and No hepatosplenomegaly present Auscultation: normoactive bowel sounds General: Yes no CVA tenderness Back/Spine/Pelvis Back: no CVA tenderness and No back tenderness Cervical Spine: cervical ROM normal Thoracic/Lumbar Spine: thoracic and lumbar spine normal to inspection, straight leg raise negative bilaterally, No thoraco-lumbar ROM limited and No lumbar spinal tenderness Skin Lesions: no lesions Rashes: no rashes Wounds: no wounds Neuro General: oriented to person, oriented to place, patient oriented x3, CN's II-XI intact bilaterally and No confusion Cranial nerves: Yes Equal, round and reactive pupils present and Yes Normal accommodation reflex present Cognition (Neuro): normal cognition Speech: No Abnormal speech present Gait exam (Neuro): Normal gait present Motor exam (neuro): 5/5 motor strength present throughout Extrem Right upper extremity: full ROM; no cyanosis Left upper extremity: full ROM; no cyanosis Right lower extremity: no edema Left lower extremity: no edema Psych Appearance: grossly normal Mental Status: mental status grossly normal Affect: normal affect Attitude: cooperative Thought process: Normal thought process present Coding Level of Care Code Est Pt Prev Care 40-64y(12585) Diagnoses Annual physical exam Z00.00 Subacute frontal sinusitis J01.10 Chronicity: subacute Sinusitis location: frontal Class 1 obesity E66.811 Additional Codes JOAQUIN-7 Assessment Billing - JOAQUIN-7 Assessment Tool: JOAQUIN-7 Assessment 51497 ([id number]) PHQ-9 - 22164 - PHQ-9 Billing: Yes ([id number]) Assessment & Plan Assessment & Plan (1) Annual physical exam: Code(s): Z00.00 - Encounter for general adult medical examination without abnormal findings Category: Medical Plan: As per HPI (2) Sinusitis: Code(s): J32.9 - Chronic sinusitis, unspecified Category: Medical Qualifiers: Chronicity: subacute Sinusitis location: frontal Qualified Code(s): J01.10 - Acute frontal sinusitis, unspecified Plan: Montelukast prescribed to address sinus symptoms caused by work environment conditions. Will try montelukast on a daily basis to reduce his sinus symptoms. If medication not helpful consider ENT evaluation (3) Class 1 obesity: Code(s): E66.811 - Obesity, class 1 Category: Medical Plan: Patient does understand his BMI is over 30 will work on being more physically active and adapting to better eating habits to reduce his weight Orders: Orders Comprehensive Makinen. Panel Fast Today Z13.1 - Encounter for screening for diabetes mellitus Complete Blood Count no Diff Today Z13.1 - Encounter for screening for diabetes mellitus Prostate Specific Antigen Scr Today Z12.5 - Encounter for screening for malignant neoplasm of prostate, Z13.1 - Encounter for screening for diabetes mellitus Referrals Cologuard Test Z12.11 - Encounter for screening for malignant neoplasm of colon Medications: New montelukast 10 mg PO DAILY 30 tabs 1RF 30 days J01.10 - Acute frontal sinusitis, unspecified
[2024-05-25 15:22] VITALS: BP 108/68; PULSE 80; TEMP 36.2; O2SAT 95; BMI 30.9
--- OUTSIDE RECORDS SUMMARY | 2024-05-25 17:17 | XMS_ITS | Referral Summary ---
Author Organization [facility] Address [address] [place] [address] Care Team Providers Care Weathercaster Name Role Phone Javi Villarreal Primary Care Provider [phone] Allergies No known active allergies Medications No known medications Active Problems No known active problems Social History Tobacco Use Types Packs/Day Years Used Date Smoking Tobacco: Never Smokeless Tobacco: Never Alcohol Use Standard Drinks/Week Comments Yes 6 (1 standard drink = 0.6 oz pur e alcohol) SOCIALLY Sex and Gender Information Value Date Recorded Sex Assigned at Male 06/02/2021 2:08 PM EDT Legal Sex Male 2:07 PM EDT Gender Identity Male 06/02/2021 2:08 PM EDT Sexual Orientation Choose not to disclose 2021 2:08 PM EDT Last Filed Vital Signs Vital Sign Reading Time Taken Comments Blood Pressure 136/83 07/09/2021 4:12 PM EDT Pulse 81 07/09/2021 4:12 PM EDT Temperature - - Respiratory Rate - - Oxygen Saturation - - Inhaled Oxygen Concentration - - Weight 131.1 kg (289 lb) 07/09/2021 4:12 PM EDT Height 203.2 cm (6' 8 ) 07/09/2021 4:12 PM EDT Body Mass Index 31.75 07/09/2021 4:12 PM EDT Plan of Treatment Not on file Insurance HSNO/FREE CARE [facility] HMO/POS Care Teams Weathercaster Relationship Specialty Start Date End Date Javi Villarreal PA [address] [place] [address] [id number] PCP - General 06/20/21
--- OUTSIDE RECORDS SUMMARY | 2024-05-25 17:17 | XMS_ITS | Clinical Summary ---
Author Organization [facility] Address [address] [place] [address] Care Team Providers Care Urology Surgeon Name Role Phone Javi Villarreal Primary Care Provider [phone] Allergies No known active allergies Medications No known medications Active Problems No known active problems Family History Medical History Relation Name Comments COPD Father Lung cancer Mother Relation Name Status Comments Father Mother Alive Social History Tobacco Use Types Packs/Day Years [...] 07/09/2021 4:12 PM EDT Plan of Treatment Health Maintenance Due Date Last Done Comments Cologuard 1975 Colon Cancer Screening 1975 Colonoscopy 1975 FOBT / Fit Test 1975 HIV Screening 1975 Hepatitis C Screening 1975 Sigmoidoscopy 1975 Hepatitis B Vaccines (1 of 3 - 19+ 3-dose series) 1994 DTaP,Tdap,and Td Vaccines (1 - Tdap) 1997 COVID-19 Vaccine ( - 2023-2 5 season) 2023 Alcohol/Substance Use Screening 02/17/2024 Depression Screening and Follow-Up 02/17/2024 Social Drivers of Health Karissa ual Screening 02/17/2024 Influenza Vaccine (Season Ended) 2024 RSV Vaccine (60+ years old a nd patients) (1 - 1-dose 75+ series) 2050 Pneumococcal Vaccine: Pediat jonatan (0-5 Years) and At-Risk Patients (6-50 Years) Aged Out No longer eligible b ased on patient's age to complete this topic Insurance HSNO/FREE CARE [facility] HMO/POS Care Teams Urology Surgeon Relationship Specialty Start Date End Date Javi Villarreal PA [address] [place] [address] [phone] PCP - General 06/20/21
== END 2024-05-25 15:54 | disposition home or self-care (01) ==
LOC: HO.HMCH 15:15
PROVIDERS: PCP Physician Assistant; Visit Provider Physician Assistant
DX: Z00.00 Encounter for general adult medical examination without abnormal findings (principal); J01.10 Acute frontal sinusitis, unspecified; E66.811 Obesity, class 1; Z68.30 Body mass index [BMI] 30.0-30.9, adult

== ENCOUNTER → 2024-05-25 15:15 | Outpatient (BNVA) | payer BC, SELFPAY | PROVIDERS: PCP Physician Assistant; Visit Provider Physician Assistant | DX: Z00.00 Encounter for general adult medical examination without abnormal findings (principal); J01.10 Acute frontal sinusitis, unspecified; E66.811 Obesity, class 1; Z68.30 Body mass index [BMI] 30.0-30.9, adult | CPT/HCPCS: 96127 ==